=== PATIENT | female | born 1970 | race Caucasian/White ===

== ENCOUNTER → 2017-07-08 10:47 | Outpatient (CLI) | payer OTHER, SELFPAY ==
--- NOTE | 2017-07-08 10:49 | RAD_ITS ---
STUDY: X-RAY - LEFT KNEE REASON FOR EXAM: Chronic pain. TECHNIQUE: 4 view(s) of the knee. COMPARISON: None. FINDINGS: Normal visualized distal femur. Normal visualized proximal tibia and fibula. Normal proximal tibiofibular articulation. Normal medial femorotibial compartment. Normal lateral femorotibial compartment. Normal patellofemoral articulation. The soft tissue structures are unremarkable. RAD/Knee 4 or More Views IMPRESSION: Normal x-ray examination of the left knee. Electronically Signed: Brandon Wilson MD at 15:39 EDT Tel , Service support ,
== END ==
PROVIDERS: Family Provider Physician Assistant; PCP Physician Assistant; Visit Provider Orthopaedic Surgery
DX: M25.562 Pain in left knee (principal)
CPT/HCPCS: 73564

== ENCOUNTER → 2017-08-04 14:22 | Outpatient (CLI) | payer OTHER, SELFPAY ==
[2017-08-04 16:47] LABS: Amphetamine Urine VISTA NEGATIVE (<1000 ng/mL); Barbiturate Urine VISTA NEGATIVE (< 200 ng/mL); Benzodiazepine Urine VISTA NEGATIVE (< 200 ng/mL); Cocaine Urine VISTA NEGATIVE (< 300 ng/mL); Ecstacy Urine VISTA NEGATIVE (< 500 ng/mL); Methadone Urine VISTA NEGATIVE (< 300 ng/mL); PCP Urine VISTA NEGATIVE (< 25 ng/mL); THC Urine VISTA POSITIVE (< 50 ng/mL); Vista UDS pH Range 6
== END ==
PROVIDERS: Visit Provider Anesthesiology Pain Medicine
DX: F11.20 Opioid dependence, uncomplicated (principal)
CPT/HCPCS: 80307

== ENCOUNTER 2017-09-21 08:30 | Outpatient (RCR) | payer OTHER, SELFPAY ==
--- NOTE | 2017-07-13 10:22 | HP.PTEVAL_ITS ---
Patient's Visit Information FORREST NORIEGA is a 46 year old F referred to Physical Therapy by Jc JONES with a diagnosis of Back and Leg Pain. Date of Evaluation: 07/13/17 Physical Therapist: Yana Chadwick - Visit Plan Frequency: 2x /Week Duration: 4 Weeks Plan: Aquatics- focus on le and core s/s - Subjective Subjective: Patient reports that she has had back pain since Dec of last year- insidious onset with bulging disc and degeneration. Therapy did not help last time and want her to try pool therapy this time. Worst: 12/03 Agg: movement, sleep Eases: heat Best: 08/03 Pain is located along the center of the spine at the belt line and radiates both sides left>right. Goes down into both thighs. Describes pain as sharp and constant ache. Left leg has N/T from the knee to the ankle. Left knee has been bothering her for a few weeks. When her back hurts she limps and thinks thats what has it aggrevated. Had a cortisone shot last week which helped alittle but she thinks its already wearing off. Sharp pains through the knee cap when she bends it then when she straightens it out the pain decreases. Has had x-rays on her neck. Has had an MRI and x-rays on the back. Has had 4 injections in her back which help for a few days and dulls out the pain while she gets her house work in. Work: not currently working- since Nov of last year and resigned from [employer] in May- lifting heavy objects- no light duty. PMHx: 3 right groin hernia, bladder sling, abdonimal ablasion, full hysterectomy, ulnar nerve transplant, migraines, asthma. Meds: Cymbalta, Tazanadine, inhaler proair, comuvent, ibuprofen. Sleep : disturbed- side sleeper. Has problems with her bladder but is contient. - Objective Posture: FH, RS, Increased kyphosis- very guarded- increased lordosis of the lumbar spine. Gait: antalgic- decreased stance on the left LE- slow and very guarded posture. HR/TR: able with UE A. Balance: WS but unable to SLS without UE A. Palpation: tender to paraspinals and spinous process along L2-sacrum. ROM: lumbar: flexion- decreased by 25% extn: decreased by 50%, SB: decreased by 50% rot: decreased by 75%- all increase pain. Sensation: grossly intact to light touch. Strength: Left: Ankle: 4/5 Knee: 4/5, Hip: 4-/5 Core:poor Right: Ankle: 4+/5, knee: 4+/5, Hip: 4/5- all testing performed increased pain in the lumbar spine. Flex: hs: severe, gastroc: severe. Special Test: Slump test: positive - Goals Goal 1:: Patient will be I with HEP and progression Goal Time Frame: 4-6 Weeks Goal 2:: Patient will maintain proper posture t/o tx session to demo increased core s/s Goal Time Frame: 4-6 Weeks Goal 3:: Patient will report 4/10 pain for 1 week Goal Time Frame: 4-6 Weeks Goal 4:: Patient will demo 4+/5 strength in Le where deficit Goal Time Frame: 4-6 Weeks - Rehabilitation Potential Physical Therapy Diagnosis: Mago presents with hypmobility- she has decreased strength and muscular endurance leading to poor posture and increased pain with ADL's. Rehabilitation Potential: Fair - Anticipated Interventions Patient/Client Instruction: Educate patient on: Benefits of Fitness Program For the Purpose of:: To improve ability to perform ADL's Therapeutic Exercise to Include: Strength training, Endurance training, Balance training, Agility training, Body mechanics, Postural training, Flexibilty training, Gait and locomotor training, In an aquatic setting, Dynamic Lumbar Stabilization For the Purpose of:: To improve muscle performance and motor function Thank you for the opportunity to evaluate your patient. For Medicare and Medicare HMO plans, please review the plan of care and approve it. It will need to be FAXED BACK to us at [phone] for Medicare purposes. Please let me know if there are questions or concerns regarding this plan of care. Physician Signature: Date:
--- NOTE | 2017-08-12 15:19 | HP.PTREVAL_ITS ---
Jc Davila, It has been my pleasure to treat FORREST NORIEGA over the last 6 visits for Back and Leg Pain. Please see the progress note below for an update on the physical therapy plan of care! Subjective: Saw Dr. Davila who changed meds which are taking the edge off- its now somewhat bearable. Worst: 12/03 Best: 08/03. Patient felt that the pool therapy didn't have an adequate try due to things coming up due to inconsistency. Would like to try to have a more consistent schedule for her. Can only sit for about 15 minutes then her legs start to go numb. Objective/Function: Posture: FH, RS, Increased kyphosis- very guarded- increased lordosis of the lumbar spine. Gait: antalgic- decreased stance on the left LE- slow and very guarded posture. HR/TR: able with UE A. Balance: WS but unable to SLS without UE A. Palpation: tender to paraspinals and spinous process along L2-sacrum. ROM: lumbar: flexion- decreased by 25% extn: decreased by 50%, SB: decreased by 50% rot: decreased by 75%- all increase pain. Sensation: grossly intact to light touch. Strength: Left: Ankle: 4/5 Knee: 4/5, Hip: 4-/5 Core:poor Right: Ankle: 4+/5, knee: 4+/5, Hip: 4/5- all testing performed increased pain in the lumbar spine. Flex: hs: severe, gastroc : severe. Special Test: Slump test: positive Plan Plan: No change since initial IE- attempt to contiue aquatic therapy consistently. Goals Goal 1:: Patient will be I with HEP and progression Goal Time Frame: 4-6 Weeks Goal Progress: Progressing Goal 2:: Patient will maintain proper posture t/o tx session to demo increased core s/s Goal Time Frame: 4-6 Weeks Goal Progress: Progressing Goal 3:: Patient will report 4/10 pain for 1 week Goal Time Frame: 4-6 Weeks Goal Progress: Progressing Goal 4:: Patient will demo 4+/5 strength in Le where deficit Goal Time Frame: 4-6 Weeks Goal Progress: Not Progressing Anticipated Interventions Patient/Client Instruction: Educate patient on: Benefits of Fitness Program For the Purpose of:: To improve ability to perform ADL's Therapeutic Exercise to Include: Strength training, Endurance training, Balance training, Agility training, Body mechanics, Postural training, Flexibilty training, Gait and locomotor training, In an aquatic setting, Dynamic Lumbar Stabilization For the Purpose of:: To improve muscle performance and motor function Please do not hesitate to contact me at [phone] by phone or Fax: if you have questions or concerns regarding this new plan of care! Sincerely, Yana Chadwick
--- NOTE | 2017-09-21 08:50 | HP.PTDCSUM_ITS ---
HP - PT D/C Summary It has been my pleasure to treat FORREST NORIEGA under orders from Jc Davila , for the diagnosis of Back and Leg Pain for a total of 13 visit(s). Discharge Date: Please see the following information for a summary of their discharge status. - Subjective Subjective: Patient reports that she feels good when she is in the water but hurts when she is on land- gets about a couple of hours of relief. Has injections this by Dr. Davila in her back. Feels that she wants to hold off on therapy and have the injections and talk to her MDs. Across the hips and knee 10/03. Couldn't wear tennis shoes today secondary to not being able to get them on. - Pain Lumbar Spine Pain Intensity (Out of 10): 4 LLE Pain Intensity (Out of 10): 6 RLE Pain Intensity (Out of 10): 4 - Overall Improvement % Improvement: 70 - Objective Objective/Function: Posture: FH, RS, Increased kyphosis- very guarded- increased lordosis of the lumbar spine. Gait: antalgic- decreased stance on the left LE- slow and very guarded posture. HR/TR: able with UE A. Balance: WS but unable to SLS without UE A. Palpation: tender to paraspinals and spinous process along L2-sacrum. ROM: lumbar: flexion- decreased by 25% extn: decreased by 50%, SB: decreased by 50% rot: decreased by 75%- all increase pain. Sensation: grossly intact to light touch. Strength: Left: Ankle: 4/5 Knee: 4/5, Hip: 4-/5 Core:poor Right: Ankle: 4+/5, knee: 4+/5, Hip: 4/5- all testing performed increased pain in the lumbar spine. Flex: hs: severe, gastroc : severe. Special Test: Slump test: positive - Goals Goal 1:: Patient will be I with HEP and progression Goal Progress: Goal Met Goal 2:: Patient will maintain proper posture t/o tx session to demo increased core s/s Goal Progress: Progressing Goal 3:: Patient will report 4/10 pain for 1 week Goal Progress: Progressing Goal 4:: Patient will demo 4+/5 strength in Le where deficit Goal Progress: Not Progressing - Plan Plan: Patient is not making progress with PT and is still in significant pain- d /c return to MD for further evaluation. - D/C Information If there are questions or concerns regarding this patient's physical therapy, please feel free to call me at [phone]. Thank you for the referral of this patient. Sincerely, Yana Chadwick
== END 2017-09-21 14:33 | disposition home or self-care (01) ==
LOC: PT 08:30
PROVIDERS: Family Provider Physician Assistant; PCP Physician Assistant; Visit Provider Anesthesiology Pain Medicine
DX: M54.9 Dorsalgia, unspecified (principal); M79.606 Pain in leg, unspecified
CPT/HCPCS: 97113; 97162; 97530

== ENCOUNTER → 2017-10-22 10:24 | Outpatient (CLI) | payer OTHER, SELFPAY ==
[2017-10-22 12:16] LABS: Absolute Lymphocyte Count 1.88 X10^3/ul (0.83-4.51); Absolute Neutrophil Count 3.1 X10^3/uL (2.0-7.7); Basophil# 0.01 X10^3/uL; Basophil% 0.2 % (0-1); Eosinophil# 0.06 X10^3/uL; Eosinophils% 1.1 % (0-5); Hematocrit 47.6 % (37-47); Hemoglobin 16.2 g/dl (12.0-15.0); Lymphocyte # 1.88 X10^3/ul (4.0); Lymphocyte % 34.4 % (19-41); Mean Corpuscular Hgb 30.6 pg (27.0-32.0); Mean Corpuscular Volume 89.8 fL (81-99); Mean Platelet Vol. 11.1 fl (6.2-12.0); Monocyte# 0.42 X10^3/uL; Monocyte% 7.7 % (0-10); Neutrophil # 3.09 X10^3/uL (2.7-7.7); Neutrophil % 56.6 % (47-70); Platelet Count 229 K/mm3 (150-450); RBC Distribution Width CV 12.3 % (11.6-14.6); RBC Distribution Width SD 40.5 fl (35.1-43.9); White Blood Count 5.5 K/mm3 (4.4-11.0)
[2017-10-22 12:20] LABS: POSITIVE COUNT NO; POSITIVE DIFFERENTIAL NO; POSITIVE MORPHOLOGY NO
[2017-10-22 12:31] LABS: Hemoglobin A1c 5.7 % (4.2-6.3)
[2017-10-22 12:48] LABS: ALB/GLOB Ratio 0.9 RATIO (0.9-2.4); AST(SGOT) 19 U/L (15-37); Alanine Aminotransfer ALT/SGPT 38 U/L (13-56); Albumin, Serum 3.7 g/dL (3.2-5.0); Alkaline Phosphatase 96 U/L (45-117); Anion Gap 9 (5-15); BUN 9 mg/dL (7-18); BUN/Creat Ratio 13.5 RATIO (10-20); Calcium,Total 8.7 mg/dL (8.5-10.1); Chloride 106 mmol/L (98-107); Cholesterol 177 mg/dL (200); Creatinine, Serum 0.67 mg/dL (0.55-1.02); EST Glomerular Filtration Rate 101 mL/min (>60); Est Glom Filt Rate - Afr Amer 123 mL/min (>60); Glucose 96 mg/dL (74-106); High Density Lipoprotein 36 mg/dL; Potassium 4.4 mmol/L (3.5-5.1); Protein, Total 7.7 g/dL (6.4-8.2); Sodium Level 140 mmol/L (136-145); Thyroid Stim Hormone (TSH) 1.23 uIU/mL (0.358-3.74); Triglycerides 122 mg/dL; Very Low Density Lipoprotein 24 mg/dL (5-40)
== END ==
PROVIDERS: Visit Provider Family Medicine
DX: I10 Essential (primary) hypertension (principal); Z86.32 Personal history of gestational diabetes; J44.9 Chronic obstructive pulmonary disease, unspecified
CPT/HCPCS: 36415; 80053; 80061; 83036; 84443; 85025

== ENCOUNTER 2017-11-03 07:51 | Outpatient (RCR) | payer OTHER, SELFPAY ==
--- NOTE | 2017-11-03 13:40 | HP.OTFCE_ITS ---
HP OT Functional Capacity Eval - Task Lift Floor (Occasional 1-33% of Day): 20# Floor (Frequent 34-66% of Day): 10# Floor (Constant 67-100% of Day): NA Floor PDL: Light Knee (Occasional 1-33% of Day): 20# Knee (Frequent 34-66% of Day): 10# Knee (Constant 67-100% of Day): NA Knee PDL: Light Waist (Occasional 1-33% of Day): 20# Waist (Frequent 34-66% of Day): 10# Waist (Constant 67-100% of Day): NA Waist PDL: Light Shoulder (Occasional 1-33% of Day): 20# Shoulder (Frequent 34-66% of Day): 10# Shoulder (Constant 67-100% of Day): NA Shoulder PDL: Light Overhead (Occasional 1-33% of Day): 20# Overhead (Frequent 34-66% of Day): 10# Overhead (Constant 67-100% of Day): NA Overhead PDL: Light - Work Activity/Posture Bending: Occasional Ability (1-33% of day) Comments: LOW Squatting: Occasional Ability (1-33% of day) Comments: LOW Kneeling: No Ablility (0% of day) Reaching out: Occasional Ability (1-33% of day) Comments: Pain limits pt Reaching up: Occasional Ability (1-33% of day) Comments: Pain limits pt Sitting: Frequent Ability (34-66% of day) Walking: Occasional Ability (1-33% of day) Comments: LOW Standing: Occasional Ability (1-33% of day) Comments: LOW - Reference Duration Sedentary Sedentary Light Light Light Medium Medium Medium Heavy Very Heavy Heavy Occasional (0-33% of day) Frequent (34-66% of day) Constant (67-100% of day) 10 # Negligible Negligible 15 # 8 # Negligible 20 # 10# Negli. 35 # 18 # 7 # 50 # 25 # 10 # 75 # 100 # >100 # 38 # 50 # >50 # 15 # 20 # >20 # - Patient Information Height: 1.7 m Weight:: 122.47 kg Hand Dominance: Right - Medical History Medical History Including Restrictions: Pt states she has a groin hernia that was repaired in 2000, 2003 and 2004. pt states she has a pinched nerve in L4 and L5 dx in 2006- pt states she went through Physical Therapy but treatment was not helpful- Pt states in 2016 pt states she has been through Physical Therapy 3 sets of 12 visits, has seen Dr. Coburn in 2017, who application security specialist and he does not elana to do sx at this time. Pt states she sees Dr. Davila for Pain Mtg for spine injections (4 injections) . Pt states she does get minimal relief of her back pain for about a week. Pt states she did get a new family dr. Monteiro and she requested the FCE. pt states she was a smoker for 35 years and just started patch Wednesday to quit smoking. No lifting restrictions. Pt states she does not exercise on a regular basis. - Diagnoses Diagnoses: Asthma dx 1997 controlled with medication. Bronchitis dx 1997 controlled with medication. Migranins dx in 1997 controlled with Medication. HTN. Degenerative joint disease, Lumbar. Anxiety - Symptoms Symptoms: Low back pain. Bilateral Hip pain. BLE pins/tingling. Decreased sleep pattern - Pain Pain: Pt states her current pain level is 5/10. Pt states this is without pain medication. - Work History Work History: Pt states she worked at [employer] from [id number]. pt states she as not worked since 2016. 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 pt states she does not know what her lift requirerment was for her job but she was lifting, 50-90lbs. pt states she was standing and the lifting and twisting with her job duties. She did not return to work due her work requirements. 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 Pt states she left this job to take care of her mother. - Behavioral Behavioral: pt was cooroperative during her assessment. - ADLS ADLS: Pt states she lives with her in a one mobile home with two entry steps with one hand rail. Pt states she has a walk in shower. pt states she is mostly IND. with bathing/dressing - states her will shave her legs. Pt states she is IND. with dressing, cooking and cleaning. Pt states she does have to take a break during her cleaning, cooking tasks. Pt states she drives IND. Pt states she does go to the store IND. Reports her assist her in bringing shopping bags in their home. - Physical Examination ROM: Pt demo functional ROM grossly throughout- pt reported pain thouroughout ROM movement Strength: Right hip flexor 4-/5 all other MMT for UB/LB 4+/5 Right Framing Mill Operator Helper Strength Average: 45.00 Right Framing Mill Operator Helper Strength Percentile: 6% Left Framing Mill Operator Helper Strength Average: 56.66 Left Framing Mill Operator Helper Strength Percentile: 28% Right Lateral Pinch Average: 9.33 Right Lateral Pinch Percentile: 10% Left Lateral Pinch Average: 8.00 Left Lateral Pinch Percentile: <10% Right Tripod Pinch Average: 9.33 Right Tripod Pinch Percentile: 10% Left Tripod Pinch Average: 8.66 Left Tripod Pinch Percentile: >25% Sensation: Denies sensation changes to hands. States LE will get pins/tingle sensation after sitting so long. Fine Motor: Denies issues Balance: No loss of balance noted. - Non Material Handling Activities Bending: Pt demo the ability to bend forward three times and ten times with external support. Pt was unable to perform task ten times rapidly. Pt reported 6 /10 pain. Pt can bend forward on a low occasional basis. Squatting: pt demo the ability to squat three times and 9 times with exteranl support-pt was unable to complete ten times rapidly . pt reported pain 6/10 following task. Pt can squat on a low occasional basis. Kneeling: Pt demo no ability to kneel. Reaching out/up: PT demo the ability to reach up/out three times, ten times and ten times rapidly. Pt reported pain 5/10 with this task. pt can perfrom on a occasional basis Walking: Pt demo the ability to ambulate for 8 min 23 sec. Pt reported her legs flet Like Jelly-pt ambulated with a antalgic gait pattern. Pt reported back pain 6/10 Pt can ambulate on a low occasional basis. Standing: Pt reports she stands for about 10 min for her shower and demo the ability to stand for 4 min with shifting her body weight. Pt reported low back pain 7/10. Pt can stand on a low occasional ability Sitting: pt demo the ability to sit for 45 min with demo facial discomfort and shifting her wt. pt can sit on frequent basis with shifting body wt. Climbing Stairs: Pt demo the ability to ascend and descend ten steps with a reciprical step pattern and use of both handrails. - Dynamic Occasional Lifting Capacity Floor Lift: pt demo the ability to lift 20# maximally from this level. Knee Lift: pt demo the ability to lift 20# maximally from this level. Waist Lift: pt demo the ability to lift 20# maximally from this level. Shoulder Lift: pt demo the ability to lift 20# maximally from this level. Overhead Lift: pt demo the ability to lift 20# maximally from this level. Carrying: pt demo the ability to carry 20# for 40 feet with antalgic gait pattern. Comments: During all lifting protions of the assessment pt did hold her breath and grimace during tasks. Pt reported 7/10 back pain following lifting tasks.
== END 2017-11-03 19:00 | disposition home or self-care (01) ==
LOC: OT 07:51
PROVIDERS: Family Provider Physician Assistant; PCP Physician Assistant; Visit Provider Family Medicine
DX: M47.816 Spondylosis without myelopathy or radiculopathy, lumbar region (principal); J44.9 Chronic obstructive pulmonary disease, unspecified
CPT/HCPCS: 97750

== ENCOUNTER 2018-02-02 13:52 | Emergency (ER) | payer OTHER, SELFPAY ==
[2018-02-02 13:53] VITALS: BP 112/92; PULSE 72; RESP 14; TEMP 31.7; O2SAT 98; BMI 42.3
--- NOTE | 2018-02-02 14:05 | EKG12_ITS ---
Test Reason : LUNG PAIN Blood Pressure : / mmHG Vent. Rate : 084 BPM Atrial Rate : 084 BPM P-R Int : 142 ms QRS Dur : 080 ms QT Int : 380 ms P-R-T Axes : 068 030 073 degrees QTc Int : 449 ms Normal sinus rhythm Normal ECG Confirmed by JAMAL CANALES, PAOLA ([id number]), purchase request editor RL VASQUEZ ([id number]) on 02/07/2018 4:00:34 PM Referred By: TANNA Confirmed By:PAOLA BERRY MD
--- NOTE | 2018-02-02 15:19 | RAD_ITS ---
STUDY: X-RAY CHEST REASON FOR EXAM: Female, 47 years old. Short of breath TECHNIQUE: PA and lateral views of the chest. COMPARISON: December 13, 2014 FINDINGS: The lungs are clear and expanded. There is no demonstrated pleural abnormality. Normal size heart. Normal mediastinum and elizabeth. Normal visualized pulmonary arteries. Normal visualized aortic arch and descending thoracic aorta. Normal visualized thoracic spine. Normal visualized ribs, clavicles, and shoulders. There is no demonstrated abnormality of the visualized soft tissue structures of the upper abdomen. RAD/Chest PA and Lateral IMPRESSION: Normal x-ray examination of the chest. Electronically Signed: Caitie Jordan MD at 15:45 EDT , Service support ,
--- NOTE | 2018-02-02 15:20 | ED.VISSUMM ---
- ER Visit Summary Date of Service: 02/02/18 Chief Complaint: Right-sided chest pain History of Present Illness: The patient is a 47 F who presents for 4 hours of right-sided chest pain. Patient states she was lifting a small box in her closet and turned, feeling a pop in her right chest with subsequent pain. Since then patient is having pleuritic chest pain. Pain is also worse with movement. No overt shortness of breath. Patient has chronic cough secondary to COPD but no worsening of cough. No nausea or vomiting. No other complaints other than the right sided chest pain. It is in the posterior axillary line and posterior right lower ribs. She has history of COPD, chronic back problems. No history of coronary artery disease. Physical Examination: Vital signs: afebrile, hemodynamically stable, no hypoxia on room air General: well nourished, well developed, in no distress, appears uncomfortable Skin: warm, dry, erythematous papular rash with coalescence and 2 ovoid plaques noted on the chest, chronic, no pallor HEENT: normocephalic and atraumatic; PERRL, EOMI, moist mucous membranes Cardiovascular: regular rate and rhythm without murmurs, no peripheral edema, 2+ pulses all distal extremities Respiratory: Patient taking rapid shallow breaths, lungs are clear to auscultation bilaterally, diffuse expiratory wheezing, chest wall tenderness over the right posterior mid ribs around to the posterior axillary line Abdominal: Abdomen is soft, nontender with normoactive bowel sounds, no guarding or rebound, no masses MSK: Moves all extremities, no deformities, normal strength Neuro: Awake and alert, oriented ?4. No facial droop, sensation and motor function intact and symmetric Test Results: Clinical Impression(s) from Imaging Studies Chest X-Ray 02/02/18 15:19 IMPRESSION: Normal x-ray examination of the chest. Electronically Signed: Caitie Jordan MD at 15:45 EDT , Service support , Emergency Department Course and Treatment: Patient was given a DuoNeb secondary to her wheezing, most likely secondary to her baseline COPD. Patient had symmetric lung sounds with no diminished sounds on the right. No unilateral rash on the chest wall that would be concerning for shingles. Given naproxen for pain. Chest x-ray was performed to evaluate for any possible spontaneous pneumothorax; it showed no pneumothorax, obvious rib fractures, pneumonia or other acute process. Patient was feeling better after her breathing treatment. She still had the pleuritic chest pain that was worse with movement. We discussed that she most likely strained a chest wall muscle or may have even irritated the cartilage between her ribs when she moved and felt the pop. She was given an incentive spirometer and will use her home naproxen for pain. She was also given a prescription for Flexeril to use for any muscle related pain. Patient discharged home. Treatment Plan: [] Disposition: [] Impression: Right sided chest wall strain This note was generated with Whisk dictation software. It may contain incorrect words, spelling, and punctuation that were not noted in review of the chart prior to signing ED Disposition - Plan for ED Patient: Disposition: Home or Assisted Living Chief Complaint: Chest Other Instructions: ED Strain Chest Wall Prescriptions: Cyclobenzaprine [Flexeril] 5 mg PO TID PRN PRN #20 tab PRN Reason: Muscle Spasm Referrals: Prasanna Perez PA [PHYSICIAN METER REPAIRER] - 3-5 Days if not improving Additional Instructions: Use your naproxen at home to help with chest wall pain, and use the Flexeril as needed to help with muscle spasm in the chest wall. Continue taking your breathing treatments as prescribed to make sure that you are breathing well. Use the incentive spirometer 10 times an hour while awake until you feel better. If you have any worsening of your condition or any new concerning symptoms, please return immediately to the emergency department for another evaluation.
--- NOTE | 2018-02-02 15:24 | ED.DCSUM_ITS ---
- ER Visit Summary Date of Service: 02/02/18 Chief Complaint: Right-sided chest pain History of Present Illness: The patient is a 47 F who presents for 4 hours of right-sided chest pain. Patient states she was lifting a small box in her closet and turned, feeling a pop in her right chest with subsequent pain. Since then patient is having pleuritic chest pain. Pain is also worse with movement. No overt shortness of breath. Patient has chronic cough secondary to COPD but no worsening of cough. No nausea or vomiting. No other complaints other than the right sided chest pain. It is in the posterior axillary line and posterior right lower ribs. She has history of COPD, chronic back problems. No history of coronary artery disease. Physical Examination: Vital signs: afebrile, hemodynamically stable, no hypoxia on room air General: well nourished, well developed, in no distress, appears uncomfortable Skin: warm, dry, erythematous papular rash with coalescence and 2 ovoid plaques noted on the chest, chronic, no pallor HEENT: normocephalic and atraumatic; PERRL, EOMI, moist mucous membranes Cardiovascular: regular rate and rhythm without murmurs, no peripheral edema, 2+ pulses all distal extremities Respiratory: Patient taking rapid shallow breaths, lungs are clear to auscultation bilaterally, diffuse expiratory wheezing, chest wall tenderness over the right posterior mid ribs around to the posterior axillary line Abdominal: Abdomen is soft, nontender with normoactive bowel sounds, no guarding or rebound, no masses MSK: Moves all extremities, no deformities, normal strength Neuro: Awake and alert, oriented ?4. No facial droop, sensation and motor function intact and symmetric Test Results: Clinical Impression(s) from Imaging Studies Chest X-Ray 02/02/18 15:19 IMPRESSION: Normal x-ray examination of the chest. Electronically Signed: Caitie Jordan MD at 15:45 EDT , Service support , Emergency Department Course and Treatment: Patient was given a DuoNeb secondary to her wheezing, most likely secondary to her baseline COPD. Patient had symmetric lung sounds with no diminished sounds on the right. No unilateral rash on the chest wall that would be concerning for shingles. Given naproxen for pain. Chest x-ray was performed to evaluate for any possible spontaneous pneumothorax; it showed no pneumothorax, obvious rib fractures, pneumonia or other acute process. Patient was feeling better after her breathing treatment. She still had the pleuritic chest pain that was worse with movement. We discussed that she most likely strained a chest wall muscle or may have even irritated the cartilage between her ribs when she moved and felt the pop. She was given an incentive spirometer and will use her home naproxen for pain. She was also given a prescription for Flexeril to use for any muscle related pain. Patient discharged home. Treatment Plan: [] Disposition: [] Impression: Right sided chest wall strain This note was generated with [employer] dictation software. It may contain incorrect words, spelling, and punctuation that were not noted in review of the chart prior to signing ED Disposition - Plan for ED Patient: Disposition: Home or Assisted Living Chief Complaint: Chest Other Instructions: ED Strain Chest Wall Prescriptions: Cyclobenzaprine [Flexeril] 5 mg PO TID PRN PRN #20 tab PRN Reason: Muscle Spasm Referrals: Prasanna Perez PA [PHYSICIAN [employer]] - 3-5 Days if not improving Additional Instructions: Use your naproxen at home to help with chest wall pain, and use the Flexeril as needed to help with muscle spasm in the chest wall. Continue taking your breath ing treatments as prescribed to make sure that you are breathing well. Use the incentive spirometer 10 times an hour while awake until you feel better. If you have any worsening of your condition or any new concerning symptoms, please return immediately to the emergency department for another evaluation.
[2018-02-02] MEDS: Naproxen 500 MG Tablet PO (15:45)
[2018-02-02 15:50] VITALS: PULSE 86; RESP 22
[2018-02-02] MEDS: Ipratropium/Albuterol Sulfate 3 ML AMPUL.NEB INHALATION (15:50)
--- NOTE | 2018-02-02 15:58 | ED.DEP ---
ED Disposition - Plan for ED Patient: Disposition: Home or Assisted Living Chief Complaint: Chest Other Instructions: ED Strain Chest Wall Prescriptions: Cyclobenzaprine [Flexeril] 5 mg PO TID PRN PRN #20 tab PRN Reason: Muscle Spasm Referrals: Prasanna Perez PA [PHYSICIAN [employer] MATE] - 3-5 Days if not improving Additional Instructions: Use your naproxen at home to help with chest wall pain, and use the Flexeril as needed to help with muscle spasm in the chest wall. Continue taking your breathing treatments as prescribed to make sure that you are breathing well. Use the incentive spirometer 10 times an hour while awake until you feel better. If you have any worsening of your condition or any new concerning symptoms, please return immediately to the emergency department for another evaluation.
[2018-02-02 16:19] VITALS: PULSE 87; RESP 14; O2SAT 98
== END 2018-02-02 16:19 | disposition home or self-care (01) ==
PROVIDERS: Emergency Provider Emergency Medicine; Family Provider Family Medicine; PCP Family Medicine
DX: S29.011A Strain of muscle and tendon of front wall of thorax, initial encounter (principal); J45.909 Unspecified asthma, uncomplicated; J44.9 Chronic obstructive pulmonary disease, unspecified; Z72.0 Tobacco use; Z79.51 Long term (current) use of inhaled steroids; Z79.891 Long term (current) use of opiate analgesic; Z79.899 Other long term (current) drug therapy; X50.0XXA Overexertion from strenuous movement or load, initial encounter; Y93.89 Activity, other specified; Y92.008 Other place in unspecified non-institutional (private) residence as the place of occurrence of the external cause; Y99.8 Other external cause status
CPT/HCPCS: 71046; 93005; 94640; 99283

== ENCOUNTER → 2018-02-10 13:26 | Outpatient (CLI) | payer OTHER, SELFPAY ==
--- NOTE | 2018-02-10 13:37 | MRI_ITS ---
STUDY: MRI LUMBAR SPINE WITHOUT CONTRAST REASON FOR EXAM: Female, 47 years old. Sharp low back pain radiates into legs x2 yrs. TECHNIQUE: Standardized fat and water weighted pulse sequences were obtained in the sagittal and axial planes. # of Images: 121 COMPARISON: None FINDINGS: T12-L1: Normal endplates. Normal disc height, hydration and morphology. Normal bilateral facet joints. Normal central canal and bilateral lateral recesses. Normal bilateral intervertebral neural foramina. Normal lumbar lordosis. There is no substantial scoliosis. Normal conus medullaris that terminates at the L1 level. L1-2: Normal endplates. Normal disc height, hydration and morphology. Normal bilateral facet joints. Normal central canal and bilateral lateral recesses. Normal bilateral intervertebral neural foramina. L2-3: Normal endplates. Normal disc height, hydration and morphology. Normal bilateral facet joints. Normal central canal and bilateral lateral recesses. Normal bilateral intervertebral neural foramina. L3-4: Normal endplates. Normal disc height, hydration and morphology. Normal bilateral facet joints. Normal central canal and bilateral lateral recesses. Normal bilateral intervertebral neural foramina. L4-5: Small midline disc herniation. Mild degenerative changes in the facet joints. Normal central canal and bilateral lateral recesses. Normal bilateral intervertebral neural foramina. L5-S1: Endplate spondylosis. Moderate size broad-based midline and para midline disc herniation more prominent on the right side impinging on the right and left S1 nerve roots. Decreased disc height and small circumferential disc bulge. Degenerative changes of the bilateral facet joints. Mild narrowing of the central canal and bilateral intervertebral neural foramina. Normal visualized sacral ala. Normal visualized paraspinous soft tissue structures. MRI/Spine Lumbar (Routine) IMPRESSION: L4-5 and L5-S1 degenerative changes, as described above. Moderate size broad-based midline and para midline disc herniation at L5-S1 is more prominent on the right side impinging on the right and left S1 nerve roots. Electronically Signed: Saravanan De La Cruz MD at 10:08 EDT Tel , Service support ,
== END ==
PROVIDERS: Family Provider Family Medicine; PCP Family Medicine; Referring Provider Anesthesiology Pain Medicine; Visit Provider Anesthesiology Pain Medicine
DX: M54.9 Dorsalgia, unspecified (principal); M79.606 Pain in leg, unspecified
CPT/HCPCS: 72148

== ENCOUNTER → 2018-05-03 08:32 | Outpatient (CLI) | payer OTHER, SELFPAY ==
--- NOTE | 2018-05-03 08:38 | RAD_ITS ---
STUDY: X-RAY - LUMBOSACRAL SPINE REASON FOR EXAM: Female, 47 years old. Chronic low back pain. TECHNIQUE: 6 view(s) of the lumbosacral spine were obtained including lateral flexion and extension views.. COMPARISON: None FINDINGS: Normal lumbar lordosis. There is a minimal dextroscoliosis of the lumbar spine. There is normal alignment of the vertebrae. Mild anterior spondylosis at the L5-S1 level. Moderate degree of disc space narrowing at the L4-L5 and L5-S1 levels. Normal bilateral sacral ala, sacroiliac joints, and visualized sacrum. There is atherosclerotic calcification of the abdominal aorta without a demonstrated aneurysm. Large amount of fecal material is seen in the colon. RAD/L/S Spine Comp/w Bending Views IMPRESSION: Degenerative changes of the spine, as detailed above. Electronically Signed: Ramos Steen MD at 8:22 EST Tel [phone], Service support ,
== END ==
LOC: HPRAD 08:34
PROVIDERS: Family Provider Family Medicine; PCP Physician Assistant; Referring Provider Orthopaedic Surgery; Visit Provider Orthopaedic Surgery
DX: M54.5 Low back pain (principal)
CPT/HCPCS: 72114

== ENCOUNTER → 2018-05-30 09:22 | Outpatient (CLI) | payer OTHER, SELFPAY ==
[2018-05-30 09:10] VITALS: BMI 41.8
--- NOTE | 2018-05-30 09:24 | RAD_ITS ---
STUDY: X-RAY - RIGHT KNEE REASON FOR EXAM: Female, 47 years old. Quadrant pain. TECHNIQUE: 4 view(s) of the knee. COMPARISON: None. FINDINGS: Normal visualized distal femur. Normal visualized proximal tibia and fibula. Normal proximal tibiofibular articulation. Normal medial femorotibial compartment. Normal lateral femorotibial compartment. Normal patellofemoral articulation. The soft tissue structures are unremarkable. RAD/Knee 4 or More Views IMPRESSION: Normal x-ray examination of the knee. Electronically Signed: Ramos Steen MD at 14:31 EST , Service support ,
--- NOTE | 2018-05-30 09:24 | RAD_ITS ---
STUDY: X-RAY - LEFT KNEE REASON FOR EXAM: Female, 47 years old. Chronic pain. No known injury. TECHNIQUE: 4 view(s) of the knee. COMPARISON: Comparison is made with prior study dated July 08, 2017. FINDINGS: Normal visualized distal femur. Normal visualized proximal tibia and fibula. Normal proximal tibiofibular articulation. Normal medial femorotibial compartment. Normal lateral femorotibial compartment. Normal patellofemoral articulation. The soft tissue structures are unremarkable. RAD/Knee 4 or More Views IMPRESSION: Normal x-ray examination of the knee. Electronically Signed: Ramos Steen MD at 14:31 EST , Service support ,
== END ==
PROVIDERS: Family Provider Family Medicine; PCP Physician Assistant; Referring Provider Orthopaedic Surgery; Visit Provider Orthopaedic Surgery
DX: M25.561 Pain in right knee (principal); M25.562 Pain in left knee
CPT/HCPCS: 73564

== ENCOUNTER → 2018-08-11 | Outpatient (CLI) | payer OTHER, SELFPAY ==
[2018-05-30 09:10] VITALS: BMI 41.8
[2018-08-11 13:58] LABS: Amphetamine Urine VISTA NEGATIVE (<1000 ng/mL); Barbiturate Urine VISTA NEGATIVE (< 200 ng/mL); Benzodiazepine Urine VISTA NEGATIVE (< 200 ng/mL); Cocaine Urine VISTA NEGATIVE (< 300 ng/mL); Ecstacy Urine VISTA NEGATIVE (< 500 ng/mL); Methadone Urine VISTA NEGATIVE (< 300 ng/mL); PCP Urine VISTA NEGATIVE (< 25 ng/mL); THC Urine VISTA NEGATIVE (< 50 ng/mL); Vista UDS pH Range 6
== END | disposition home or self-care (01) ==
PROVIDERS: Family Provider Family Medicine; PCP Family Medicine; Referring Provider Anesthesiology Pain Medicine; Visit Provider Anesthesiology Pain Medicine
DX: F11.20 Opioid dependence, uncomplicated (principal)
CPT/HCPCS: 80307

== ENCOUNTER 2018-09-03 23:02 | Observation (INO) | payer OTHER, SELFPAY ==
[2018-05-30 09:10] VITALS: BMI 41.8
[2018-09-03 23:02] VITALS: BP 160/82; PULSE 114; RESP 20; TEMP 37.7; O2SAT 93; BMI 43.0
--- NOTE | 2018-09-03 23:21 | RAD_ITS ---
HISTORY: COUGH, SORE THROAT AND SOB. EXAM:XR Chest 1 View portable COMPARISON: 02/02/2018 FINDINGS: No significant change. Normal heart size. No vascular congestion, pleural effusion, or acute pulmonary infiltration. No pneumothorax. The bony thorax appears intact. RAD/Chest 1 View (Portable) IMPRESSION: No acute cardiopulmonary disease. No significant interval change. at [id number] Reported and signed by: Prasanna Ga MD Electronically Signed: Prasanna Ga, at 23:44 EDT Tel , Service support ,
--- NOTE | 2018-09-03 23:21 | EKG12_ITS ---
Test Reason : SOB Blood Pressure : / mmHG Vent. Rate : 105 BPM Atrial Rate : 105 BPM P-R Int : 128 ms QRS Dur : 078 ms QT Int : 332 ms P-R-T Axes : 063 014 068 degrees QTc Int : 438 ms Sinus tachycardia Otherwise normal ECG Confirmed by ARCHANA GREY ([id number]), society editor JAMES DAVE ([id number]) on 09/05/2018 1:47:44 PM Referred By: [place] Confirmed By:ARCHANA GREY
[2018-09-03] MEDS: MethylPREDNISolone 125 MG/2 ML Vial IV (23:40)
[2018-09-03 23:45] VITALS: O2SAT 96
[2018-09-03] MEDS: Ipratropium/Albuterol Sulfate 3 ML AMPUL.NEB INHALATION (23:45)
[2018-09-03] MEDS: Albuterol 2.5 MG/3 ML VIAL.NEB. INHALATION (23:45)
[2018-09-03 23:52] VITALS: PULSE 115; RESP 25
[2018-09-03 23:57] LABS: Absolute Lymphocyte Count 2.07 X10^3/ul (0.83-4.51); Absolute Neutrophil Count 10.2 X10^3/uL (2.0-7.7); Basophil# 0.01 X10^3/uL; Basophil% 0.1 % (0-1); Eosinophil# 0.03 X10^3/uL; Eosinophils% 0.2 % (0-5); Hematocrit 42.1 % (37-47); Hemoglobin 14.8 g/dl (12.0-15.0); Lymphocyte # 2.07 X10^3/ul (4.0); Lymphocyte % 15.7 % (19-41); Mean Corp Hgb Conc 35.2 g/gl (32-36); Mean Corpuscular Hgb 31.2 pg (27.0-32.0); Mean Corpuscular Volume 88.8 fL (81-99); Mean Platelet Vol. 10.4 fl (6.2-12.0); Monocyte# 0.77 X10^3/uL; Monocyte% 5.9 % (0-10); Neutrophil # 10.23 X10^3/uL (2.7-7.7); Neutrophil % 77.8 % (47-70); POSITIVE COUNT NO; POSITIVE DIFFERENTIAL NO; POSITIVE MORPHOLOGY NO; Platelet Count 222 K/mm3 (150-450); RBC Distribution Width CV 12.7 % (11.6-14.6); RBC Distribution Width SD 40.9 fl (35.1-43.9); Red Blood Count 4.74 M/mm3 (4.2-5.4); White Blood Count 13.2 K/mm3 (4.4-11.0)
[2018-09-04] VITALS (12 sets, daily range): BP systolic 124–159; BP diastolic 56–85; PULSE 80–121; RESP 16–28; TEMP 36.4–37; O2SAT 92–96; BMI 43.2
--- NOTE | 2018-09-04 00:07 | ED.DCSUM_ITS ---
- ER Visit Summary Date of Service: 09/04/18 Chief Complaint: Cough, shortness of breath History of Present Illness: The patient is a 48 F presents to the emergency department cough and shortness of breath. Patient states she has a history of COPD. The past week, she had worsening cough, shortness of breath, orthopnea, and continued wheezing. She states she is been using her nebulizers every 4 hours with little improvement. She states she had a difficult time sleeping because she is so dyspneic. She denies any chest pain. She does admit to some low-grade fevers. She states that she had a few bouts of posttussive emesis. The patient has no history of coronary vascular disease. She denies any history of pulmonary embolus. She does smoke. She denies any recent sick contacts. Physical Examination: Vital signs reviewed General: Well-nourished, well-developed Head: Normocephalic, atraumatic Eyes: Pupils equal and reactive, extraocular muscles intact Neck, supple, no lymphadenopathy Heart: Regular rate and rhythm Respiratory: No distress, wheezing in all lung samuels Abdomen: Soft, nontender, nondistended, no peritoneal signs Back: Nontender Extremities: Nontender, no edema, no cords Skin: Normal color no rash Neuro: Alert and oriented, no focal or lateralizing deficits Test Results: [] Emergency Department Course and Treatment: The patient's symptoms do seem most consistent with a COPD exacerbation. EKG was obtained. Sinus tachycardia. There is no acute ischemic change. Patient was given nebulized breathing treatments and steroids. She did have some improvement of aeration but still h ad tightness and resting tachypnea. Chest x-ray shows no focal infiltrate. Labs do demonstrate a mild leukocytosis, but otherwise unremarkable. Cardiac enzymes are normal. Despite treatment, patient still has persistent bronchospasm. She will be covered with IV antibiotics. Patient was discussed with the hospitalist and will be admitted for continued care. Treatment Plan: [] Disposition: Admission Impression: 1. COPD exacerbation with persistent bronchospasm This note was generated with [employer] dictation software. It may contain incorrect words, spelling, and punctuation that were not noted in review of the chart prior to signing ED Disposition - Plan for ED Patient: Referrals: Huey Hoff MD [Primary Care Provider] -
[2018-09-04 00:16] LABS: Anion Gap 6 (5-15); BUN 14 mg/dL (7-18); BUN/Creat Ratio 23.5 RATIO (10-20); Calcium,Total 8.4 mg/dL (8.5-10.1); Chloride 107 mmol/L (98-107); EST Glomerular Filtration Rate 115 mL/min (>60); Est Glom Filt Rate - Afr Amer 139 mL/min (>60); Estimated Creatinine Clearance 112.72 ml/min; Glucose 109 mg/dL (74-106); Potassium 3.7 mmol/L (3.5-5.1); Sodium Level 137 mmol/L (136-145)
[2018-09-04] MEDS: Albuterol 2.5 MG/3 ML VIAL.NEB. INHALATION ×2 (00:25)
[2018-09-04 00:34] LABS: Lactic Acid 1.2 mmol/L (0.4-2.0)
--- NOTE | 2018-09-04 00:49 | HP.PCM_ITS ---
Problem List (1) COPD exacerbation Status: Acute (2) COPD with asthma Status: Chronic (3) Morbid obesity Status: Chronic (4) Anxiety and depression Status: Chronic (5) Chronic back pain Status: Chronic Qualifiers: Back pain location: back pain in unspecified location Back pain laterality: unspecified Qualified Code(s): M54.9 - Dorsalgia, unspecified; G89.29 - Other chronic pain (6) Tobacco use Status: Chronic (7) Chronic acquired lymphedema Status: Chronic History of Present Illness Date of Admission: 09/04/18 Chief Complaint: Dyspnea, cough, wheezing. The patient is a 48 y/o F w/ PMHx: Tobacco use, Anxiety and Depression, Chronic BL LE Edema, Asthma/COPD, Chronic low back pain following w/ Dr. Davila, Morbid Obesity who presents to the [facility] ED on 09/04/18 with history of ~ 1 week URI sxs, now with 4 days of worsening dyspnea, cough, wheezing, unable to bring up her sputum, low grade temperatures. The patient has attempted to use her rescue inhalers heavily without marked improvement. In the ED work-up included T 99.9, heart rate initially 114, BP 160/82, respiratory rate 20, 93% on room air, CBC with WBC 13.2, globin 14.8, platelet 222 with left shift, BMP with glucose 109, lactic acid 1.2, troponin less than 0.015, EKG with no acute evidence of ischemia, chest x-ray with no acute cardia pulmonary findings, blood culture x2 pending per ED. Past Medical History Past Medical History (Chronic Problems): Chronic Problems (Last Reviewed 07/08/17 @ 10:38 by Jazmine Dean) COPD with asthma (Chronic) Morbid obesity (Chronic) Anxiety and depression (Chronic) Chronic back pain (Chronic) Tobacco use (Chronic) Chronic acquired lymphedema (Chronic) Medical History: Medical History (Last Reviewed 07/08/17 @ 10:38 by Jazmine Dean) Asthma J45.909 COPD (chronic obstructive pulmonary disease) J44.9 Chronic low back pain M54.5, G89.29 H/O: hysterectomy Z90.710 11/2015 Allergies cephalexin monohydrate [From Keflex] Allergy (Verified 09/03/18 23:05) Anaphylaxis clarithromycin [From Biaxin] Allergy (Verified 09/03/18 23:05) Anaphylaxis Penicillins Allergy (Verified 09/03/18 23:05) Anaphylaxis aspirin Adverse Reaction (Verified 09/03/18 23:05) Nausea Home Medications: Ambulatory Orders Medication Instructions Recorded Albuterol Aerosols [Ventolin 1 unit INHALATION Q4H PRN PRN 11/04/16 Aerosols] albuterol sulfate HFA 90 2 puff INHALATION Q6H 07/08/17 mcg/actuation aerosol inhaler tizanidine 4 mg capsule 4 mg PO QHS 07/08/17 Hydrocodone/Acetaminophen 1 ea PO TID 02/02/18 [Hydrocodon-Acetaminophen 5-325] Venlafaxine HCl 75 mg PO BID 02/02/18 Hydrochlorothiazide [Hctz] 25 mg PO DAILY 09/03/18 Hydroxyzine HCl 25 mg PO DAILY PRN 09/03/18 Surgical History: Surgical History (Last Updated 07/08/17 @ 10:39 by Jazmine Dean) H/O right inguinal hernia repair Z98.890, Z87.19 08/2001 S/P endometrial ablation Z98.890 S/P removal of left ovary Z90.721 04/2015 bladder sling Surgical History: - - Hysterectomy, bladder sling, right inguinal hernia repair, endometrial ablation, left oophorectomy. 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 Alcohol: None Drugs: None - *Family History Maternal Family History: Family History (Last Updated 07/08/17 @ 10:39 by Jazmine Dean) Mother Myocardial infarction Heart disease CVA (cerebral vascular accident) Hypertension Diabetes Sister Uterine cancer History Items: Diabetes, High Cholesterol, Heart Disease, Hypertension, Stroke Paternal Family History: Family History (Last Updated 07/08/17 @ 10:39 by Jazmine Dean) Mother Myocardial infarction Heart disease CVA (cerebral vascular accident) Hypertension Diabetes Sister Uterine cancer History Items: - - Patient does not know her paternal family history. Review of Systems Constitutional: Reports: Anorexia, Chills, Malaise, Weakness, Fatigue. Denies: Fever, Weight Change HEENT: Reports: Sinus Congestion, Sore Throat. Denies: Head Aches, Sinus Drainage Cardiovascular: Denies: Chest Pain, Palpitations Respiratory: Reports: Cough, Shortness of Breath, Shortness of breath at rest, Shortness of breath upon exertion, Sputum production, Wheezing Gastrointestinal: Denies: Abdominal Pain, Nausea, Vomiting Genitourinary: Denies: Dysuria Musculoskeletal: Reports: Back Pain, Joint Pain. Denies: Joint Tenderness Skin: Denies: Rash, Wounds Neurological: Denies: Numbness, Tingling, Focal weakness Psychiatric: Reports: Anxiety, Depression. Denies: Homicidal Ideations, Suicidal Ideations Hematologic/ Lymphatic: Denies: Easy Bruising, Easy Bleeding VTE Information - Inpt Only VTE Present on Admission: No VTE Mechan Device Prophylaxis: SCD's VTE Pharm Prophylaxis ordered?: Yes Patient Problems: Active and Suspected Problems (Last Reviewed 07/08/17 @ 10:38 by Jazmine romeo) COPD exacerbation (Acute) Subjective: Seated upright in ED bed, fatigued appearance, still ongoing increased work of breathing, some accessory muscle usage, ill-appearing Objective: Physical Examination: General: awake, alert, oriented x 3 and cooperative, seated upright in the ED bed, fatigued, ill-appearing, increased work of breathing, accessory muscle usage. Skin: normal color, turgor, no icterus, cyanosis. HEENT: AT/NC, EOMI, PERRLA, dry MM, no carotid bruits or JVD noted. Lungs: Severely diminished breath sounds throughout, greater bases, increased respiratory rate, accessory muscle usage, fatigued appearance, no current rales, rhonchi or wheezing. Heart: Tachycardic with regular rhythm; no gallop, rub audible. Abdomen: soft, orbitally obese, NTTP, ND, normal BS, no HSM; however, habitus makes examination difficult. Extremities: no cyanosis, clubbing, bilateral lower extremity ankle to distal beltre not markedly pitting edema, chronic. Neurological: patient awake, alert, oriented x 3; cognitive function intact; pupils equally reactive to light and accomodation; cranial nerves II-XII grossly normal, moving all 4 extremities, no focal deficits, strength severely global decrease secondary to acute presentation. Psychiatric: affect appears fatigued, no acute evidence of depressive or anxiety feelings. - Physical Exam Vital Signs Temp Pulse Resp BP Pulse Ox 98.3 F 112 H 26 H 133/78 H 96 09/04/18 00:00 09/04/18 00:00 09/04/18 00:00 09/04/18 00:00 09/04/18 00:00 Oxygen Delivery Method Room Air Weight: 275 lb Body Mass Index (BMI) 43.0 Finger Stick Blood Glucose 113 Laboratory Tests Past 24 Hrs 09/03/18 09/03/18 09/03/18 23:30 23:30 23:38 WBC 13.2 H RBC 4.74 Hgb 14.8 Hct 42.1 MCV 88.8 MCH 31.2 MCHC 35.2 RDW 12.7 RDW Differential 40.9 Plt Count 222 MPV 10.4 Immature Gran % (Auto) 0.300 Neut % (Auto) 77.8 H Lymph % (Auto) 15.7 L Spencer % (Auto) 5.9 Eos % (Auto) 0.2 Baso % (Auto) 0.1 Absolute Neuts (auto) 10.2 H Absolute Lymphs (auto) 2.07 Total Counted Not Reportable Sodium 137 Potassium 3.7 Chloride 107 Carbon Dioxide 24.0 Anion Gap 6 BUN 14 Creatinine 0.60 Estim Creat Clear Calc 112.72 Est GFR (MDRD) Af Amer 139 Est GFR (MDRD) Non-Af 115 BUN/Creatinine Ratio 23.5 H Glucose 109 H Lactic Acid 1.2 Calcium 8.4 L Troponin I < 0.015 Assessment/Plan All Active Problems (Last Reviewed 07/08/17 @ 10:38 by Jazmine Dean) COPD exacerbation (Acute) Abdominal pain (Acute) The patient is a 48 y/o F w/ PMHx: Tobacco use, Anxiety and Depression, Chronic BL LE Edema, Asthma/COPD, Chronic low back pain following w/ Dr. Davila, Morbid Obesity who presents to the [facility] ED on 09/04/18 with history of ~ 1 week URI sxs, now with 4 days of worsening dyspnea, cough, wheezing, unable to bring up her sputum, low grade temperatures. (1) Acute Sepsis secondary to Acute Hypoxic Respiratory Failure secondary to A cute on chronic COPD exacerbation: ED work-up included T 99.9, heart rate initially 114, BP 160/82, respiratory rate 20, 93% on room air, increased work of breathing, accessory muscle usage, evidence respiratory difficulties upon evaluation, CBC with WBC 13.2, globin 14.8, platelet 222 with left shift, BMP with glucose 109, lactic acid 1.2, troponin less than 0.015, EKG with no acute evidence of ischemia, chest x-ray with no acute cardia pulmonary findings, blood culture x2 pending per ED. Will admit to [facility], maintain on oxygen with wean as tolerated to room air, continue ATC duonebs, PRN albuterol, IV methylprednisolone, HOB, IS parameters, IV Doxycycline with pending sputum cultures. (2) Chronic BL LE Lymphedema: Continue home regimen including HCTZ, PRN hydralazine. (3) Morbid Obesity: Weight loss and lifestyle changes encouraged, nutrition consulted. (4) Tobacco Abuse: Encouraged cessation, inpatient consultation per RT, NR if desired. (5) Anxiety and Depression: Continue home velafaxine regimen. (6) Chronic Lumbar Back Pain: Following w/ pain management, Dr. Davila, continue home pain regimen, muscle relaxant regimen. (7) DVT Prophylaxis: SCDs, lovenox. Code Visit Inpatient E&M: 23392 Init Hosp L3
[2018-09-04] MEDS: Acetaminophen 325 MG Tablet 650 MG PO ×2 (01:32→17:20)
[2018-09-04 02:00] LABS: Magnesium 1.4 mg/dL (1.6-2.6)
[2018-09-04] MEDS: BENZOCAINE/MENTHOL 1 LOZENGE MUCOUS MEM ×2 (02:26→19:38)
[2018-09-04] MEDS: HYDROcodone Bitartrate/Apap 5/325 Tablet PO ×3 (02:51→23:14)
[2018-09-04] MEDS: Venlafaxine HCl 75 MG Tablet PO ×3 (03:22→22:04)
[2018-09-04] MEDS: tiZANidine HCl 2 MG Tablet 4 MG PO ×2 (03:22→22:04)
[2018-09-04 06:34] LABS: Absolute Lymphocyte Count 0.56 X10^3/ul (0.83-4.51); Absolute Neutrophil Count 13.1 X10^3/uL (2.0-7.7); Differential Indicated SCAN CRITERIA MET; Hematocrit 42.3 % (37-47); Hemoglobin 14.1 g/dl (12.0-15.0); Lymphocyte # 0.56 X10^3/ul (4.0); Mean Corp Hgb Conc 33.3 g/gl (32-36); Mean Corpuscular Hgb 29.9 pg (27.0-32.0); Mean Corpuscular Volume 89.8 fL (81-99); Mean Platelet Vol. 10.4 fl (6.2-12.0); Monocyte# 0.22 X10^3/uL; Monocyte% 1.6 % (0-10); Neutrophil % 94.3 % (47-70); POSITIVE COUNT NO; POSITIVE DIFFERENTIAL YES; POSITIVE MORPHOLOGY NO; Platelet Count 213 K/mm3 (150-450); RBC Distribution Width CV 12.5 % (11.6-14.6); RBC Distribution Width SD 40.7 fl (35.1-43.9); Red Blood Count 4.71 M/mm3 (4.2-5.4); White Blood Count 13.9 K/mm3 (4.4-11.0)
[2018-09-04 06:48] LABS: Anion Gap 6 (5-15); BUN 11 mg/dL (7-18); BUN/Creat Ratio 15.6 RATIO (10-20); Calcium,Total 8.5 mg/dL (8.5-10.1); Chloride 107 mmol/L (98-107); EST Glomerular Filtration Rate 95 mL/min (>60); Est Glom Filt Rate - Afr Amer 115 mL/min (>60); Estimated Creatinine Clearance 96.62 ml/min; Glucose 216 mg/dL (74-106); Potassium 3.9 mmol/L (3.5-5.1); Sodium Level 137 mmol/L (136-145)
[2018-09-04] MEDS: Ipratropium/Albuterol Sulfate 3 ML AMPUL.NEB INHALATION ×4 (07:16→19:58)
--- NOTE | 2018-09-04 08:34 | PCM.PN.BLA ---
Progress Note Patient is a 48-year-old lady with history of asthma as well as bronchitis who continues to smoke presented with progressive shortness of breath. An assessment of COPD with acute exacerbation was made patient admitted to regular nursing floor where she is currently being managed Patient has been seen and examined. Her initial assessment including history and physical, diagnostic data as well as management orders reviewed will follow.
[2018-09-04] MEDS: 0.9% Normal Saline 1,000 ML 125 ML IV (09:30)
[2018-09-04] MEDS: hydroCHLOROthiazide 25 MG Tablet PO (09:31)
[2018-09-04] MEDS: guaiFENesin 1,200 MG Tablet 1200 MG PO ×2 (09:31→22:04)
[2018-09-04] MEDS: Enoxaparin 40 MG/0.4 ML Syringe SC (09:31)
[2018-09-04] MEDS: Ondansetron 4 MG/2 ML Vial IV (12:16)
[2018-09-04] MEDS: MELATONIN 3 MG TABLET PO (23:14)
[2018-09-05 05:21] VITALS: BP 144/86; PULSE 75; RESP 18; TEMP 36.5; O2SAT 93
[2018-09-05] MEDS: BENZOCAINE/MENTHOL 1 LOZENGE MUCOUS MEM ×2 (05:27→10:03)
[2018-09-05 06:52] VITALS: PULSE 85; RESP 22; O2SAT 94
[2018-09-05] MEDS: Ipratropium/Albuterol Sulfate 3 ML AMPUL.NEB INHALATION ×2 (06:52→11:35)
[2018-09-05] MEDS: 0.9% NaCl Peripheral Flush Adult/Peds IV (09:37)
[2018-09-05 09:39] LABS: Magnesium 2.2 mg/dL (1.6-2.6)
[2018-09-05] MEDS: guaiFENesin 1,200 MG Tablet 1200 MG PO (09:44)
[2018-09-05] MEDS: Venlafaxine HCl 75 MG Tablet PO (09:44)
[2018-09-05] MEDS: hydroCHLOROthiazide 25 MG Tablet PO (09:44)
[2018-09-05] MEDS: HYDROcodone Bitartrate/Apap 5/325 Tablet PO (09:44)
[2018-09-05] MEDS: Enoxaparin 40 MG/0.4 ML Syringe SC (09:44)
--- NOTE | 2018-09-05 09:53 | DCINST_ITS ---
- Discharge Diagnoses Current Active Problems: Current Active and Chronic Problems (Last Reviewed 07/08/17 @ 10:38 by Jazmine Dean) COPD exacerbation (Acute) COPD with asthma (Chronic) Morbid obesity (Chronic) Anxiety and depression (Chronic) Chronic back pain (Chronic) Tobacco use (Chronic) Chronic acquired lymphedema (Chronic) You will use the following diet at home:: Calorie/Carbohydrate Controlled (specify 1200, 1400, etc) Your food should be the consistency of: Regular Your liquids should be the consistency of: Regular/Thin Discharge Activity: Return to Normal Activity Call your doctor if you observe: Fever of 101 or Higher, Shortness of breath, Dizziness, Fainting spells, Swelling in the ankles, Chest pain, Increased palpitations (irregular heartbeat) Allergies/Adverse Reactions: Allergies cephalexin monohydrate [From Keflex] Allergy (Verified 09/03/18 23:05) Anaphylaxis clarithromycin [From Biaxin] Allergy (Verified 09/03/18 23:05) Anaphylaxis Penicillins Allergy (Verified 09/03/18 23:05) Anaphylaxis aspirin Adverse Reaction (Verified 09/03/18 23:05) Nausea Medications to take at Discharge Albuterol Aerosols [Ventolin Aerosols] 1 unit INHALATION Q4H PRN PRN 11/04/16 tizanidine 4 mg capsule 4 mg PO QHS 07/08/17 Hydrocodone/Acetaminophen [Hydrocodone-Acetamin 5-325 mg] 1 ea PO BID 02/02/18 Venlafaxine HCl 75 mg PO BID 02/02/18 Hydrochlorothiazide [Hctz] 25 mg PO DAILY 09/03/18 Hydroxyzine HCl 25 mg PO DAILY PRN 09/03/18 Albuterol Sulfate [Ventolin Hfa] 2 puff INHALATION Q6H #1 hfa.aer.ad 09/05/18 Doxycycline 100 mg PO BID #8 capsule 09/05/18 Prednisone [Deltasone] 40 mg PO DAILY #14 tablet 09/05/18 The following prescriptions were given: Prednisone [Deltasone] 40 mg PO DAILY #14 tablet Doxycycline 100 mg PO BID #8 capsule Albuterol Sulfate [Ventolin Hfa] 2 puff INHALATION Q6H #1 hfa.aer.ad Primary Care Physician: Huey Hoff MD [Primary Care Provider] - Please follow up with your Primary Care Physician in: 3-5 days Test Results: Test results from this visit will be discussed in further detail at your follow- up appointment, if applicable.
[2018-09-05] MEDS: Mag Hydrox/Al Hydrox/Simeth 30 ML UDC PO (10:03)
[2018-09-05 11:21] VITALS: BP 157/85; PULSE 84; RESP 18; TEMP 36.5; O2SAT 95
[2018-09-05 11:35] VITALS: PULSE 85; RESP 18
--- NOTE | 2018-09-05 14:54 | DS.PCM_ITS ---
Discharge Date and Diagnosis Date of Admission: 09/04/18 Date of Discharge: 09/05/18 - Secondary Discharge Diagnosis Chronic Problems (Last Reviewed 07/08/17 @ 10:38 by Jazmine Dean) COPD with asthma (Chronic) Morbid obesity (Chronic) Anxiety and depression (Chronic) Chronic back pain (Chronic) Tobacco use (Chronic) Chronic acquired lymphedema (Chronic) Hospital Course and Treatment Imaging Results: CXR: IMPRESSION: No acute cardiopulmonary disease. No significant interval change. Consults: None Operations: None Procedures: None Summary of Care Provided: Per HPI: The patient is a 48 y/o F w/ PMHx: Tobacco use, Anxiety and Depression, Chronic BL LE Edema, Asthma/COPD, Chronic low back pain following w/ Dr. Davila, Morbid Obesity who presents to the [facility] ED on 09/04/18 with history of ~ 1 week URI sxs, now with 4 days of worsening dyspnea, cough, wheezing, unable to bring up her sputum, low grade temperatures. The patient has attempted to use her rescue inhalers heavily without marked improvement. In the ED work-up included T 99.9, heart rate initially 114, BP 160/82, respiratory rate 20, 93% on room air, CBC with WBC 13.2, globin 14.8, platelet 222 with left shift, BMP with glucose 109, lactic acid 1.2, troponin less than 0.015, EKG with no acute evidence of ischemia, chest x-ray with no acute cardia pulmonary findings, blood culture x2 pending per ED. Hospital course: 1. Acute on chronic COPD [id number] female with history of tobacco use and asthma/COPD presenting with 1 week of upper respiratory symptoms as well as 4 days of worsening dyspnea, cough, and wheezing. On admission she had no oxygen saturation less than 92% therefore she was not hypoxic and she had no evidence of an infection on chest x-ray to feel that she was septic, lactic acid was only 1.2, despite having multiple positive sirs criteria. She was feeling much better on the day of discharge and she was discharged on steroids and inhalers. Because of her worsening URI symptoms it is possible that she could have an early bacterial infection that was not caught on any imaging or objective lab data therefore she was started and discharged on 5 days of doxycycline. This plan was discussed and understood by the patient and she was agreeable to discharge today. 2. HTN/morbid obesity-she has a BMI of 43.2, notes discussed with her for lifestyle changes and dietary changes as well to decrease her weight. She was continued on her home HCTZ and hydralazine. 3. Her other medical diagnoses were evaluated in her home medications were continued where appropriate - Physical Exam General: Alert, Oriented x3, Cooperative, No apparent distress HEENT: Atraumatic, PERRLA, EOMI, Normocephalic Oral: Moist Mucosa Neck: Supple, No JVD Lungs: Normal air movement, Diminished, Rhonchi, Wheezes Cardiovascular: Regular rate, Regular Rhythm, Normal S1, Normal S2, No murmurs Abdomen: Soft, Non Tender, Non-Distended, No Hepato-splenomegaly Extremities: No edema, Capillary Refill Less than 3 Seconds Skin: No rashes, No breakdown Neurological: Neuro grossly intact, Sensory exam intact to light touch and pain Psych/Mental Status: Normal Affect, Appropriate Vital Signs Temp Pulse Resp BP Pulse Ox 97.7 F L 85 18 157/85 H 95 09/05/18 11:21 09/05/18 11:35 09/05/18 11:35 09/05/18 11:21 09/05/18 11:21 Oxygen Delivery Method Room Air Weight: 276 lb Body Mass Index (BMI) 43.2 Finger Stick Blood Glucose 113 Intake and Output for Last 24 Hours 09/03/18 09/04/18 09/05/18 23:59 23:59 23:59 Intake Total 3759 / 3759 1102 / 1102 Balance 3759 / 3759 1102 / 1102 Laboratory Tests Past 24 Hrs 09/05/18 09:18 Magnesium 2.2 Discharge Activity: Return to Normal Activity Call your doctor if you observe: Fever of 101 or Higher, Shortness of breath, Dizziness, Fainting spells, Swelling in the ankles, Chest pain, Increased palpitations (irregular heartbeat) Home Medications: Medications to take at Discharge Albuterol Aerosols [Ventolin Aerosols] 1 unit INHALATION Q4H PRN PRN 11/04/16 tizanidine 4 mg capsule 4 mg PO QHS 07/08/17 Hydrocodone/Acetaminophen [Hydrocodone-Acetamin 5-325 mg] 1 ea PO BID 02/02/18 Venlafaxine HCl 75 mg PO BID 10/10/18 Hydrochlorothiazide [Hctz] 25 mg PO DAILY 09/03/18 Hydroxyzine HCl 25 mg PO DAILY PRN 09/03/18 Albuterol Sulfate [Ventolin Hfa] 2 puff INHALATION Q6H #1 hfa.aer.ad 09/05/18 Doxycycline 100 mg PO BID #8 capsule 09/05/18 Prednisone [Deltasone] 40 mg PO DAILY #14 tablet 09/05/18 Following Prescrptions Were Given to Patient: Prednisone [Deltasone] 40 mg PO DAILY #14 tablet Doxycycline 100 mg PO BID #8 capsule Albuterol Sulfate [Ventolin Hfa] 2 puff INHALATION Q6H #1 hfa.aer.ad Primary Care Physician: Huey Hoff MD [Primary Care Provider] - Please follow up with your Primary Care Physician in: 3-5 days Please Follow Up With: Huey Hoff MD When: Sunday September 16, 2018 Disposition: Home Minutes spent on discharge:: 35 Patient Condition:: Good Medical Necessity - Tobacco Use Smoking Status: Current every day smoker Tobacco Use: Cigarettes Meaningful Use Info Meaningful Use Diagnoses (Choose all that apply): None applicable Code Visit OBSV E&M: 56049 Observation care discharge
== END 2018-09-05 12:11 | disposition home or self-care (01) ==
LOC: ED 23:26 → MS3 09-04 00:55
PROVIDERS: Admitting Provider Family Medicine; Emergency Provider Emergency Medicine; Family Provider Internal Medicine; PCP Internal Medicine; Visit Provider Family Medicine
DX: J96.01 Acute respiratory failure with hypoxia (principal); J44.1 Chronic obstructive pulmonary disease with (acute) exacerbation; E66.01 Morbid (severe) obesity due to excess calories; I10 Essential (primary) hypertension; I89.0 Lymphedema, not elsewhere classified; G89.29 Other chronic pain; M54.5 Low back pain; Z68.41 Body mass index [BMI] 40.0-44.9, adult; Z71.3 Dietary counseling and surveillance; Z79.899 Other long term (current) drug therapy; F17.210 Nicotine dependence, cigarettes, uncomplicated; F41.9 Anxiety disorder, unspecified; F32.9 Major depressive disorder, single episode, unspecified
CPT/HCPCS: 36415; 71045; 80048; 83605; 83735; 84484; 85025; 87040; 93005; 94640; 94667; 94668; 96361; 96365; 96366; 96372; 96375; 96376; 97802; 99218; 99285; 99406; J7030; J7040; A4216; G0378; J2405

== ENCOUNTER → 2018-10-31 | Outpatient (CLI) | payer OTHER, SELFPAY ==
[2018-09-16 08:53] VITALS: BMI 40.1
[2018-10-31 12:32] LABS: Anion Gap 5 (5-15); BUN 14 mg/dL (7-18); Calcium,Total 8.8 mg/dL (8.5-10.1); Chloride 109 mmol/L (98-107); Cholesterol 163 mg/dL (200); Creatinine, Serum 0.61 mg/dL (0.55-1.02); EST Glomerular Filtration Rate 112 mL/min (>60); Est Glom Filt Rate - Afr Amer 135 mL/min (>60); Glucose 107 mg/dL (74-106); High Density Lipoprotein 41 mg/dL; Potassium 3.9 mmol/L (3.5-5.1); Sodium Level 139 mmol/L (136-145); Triglycerides 92 mg/dL; Very Low Density Lipoprotein 18 mg/dL (5-40)
[2018-10-31 12:33] LABS: Hemoglobin A1c 5.8 % (4.2-6.3)
== END | disposition home or self-care (01) ==
LOC: BIMLAB 09:19
PROVIDERS: Family Provider Internal Medicine; PCP Internal Medicine; Visit Provider Internal Medicine
DX: I10 Essential (primary) hypertension (principal); E66.01 Morbid (severe) obesity due to excess calories
CPT/HCPCS: 36415; 80048; 80061; 83036

== ENCOUNTER 2018-11-14 17:01 | Emergency (ER) | payer OTHER, SELFPAY ==
[2018-11-09 10:51] VITALS: BMI 40.1
[2018-11-14 17:01] VITALS: BP 132/81; PULSE 83; RESP 16; TEMP 36.8; O2SAT 96; BMI 42.0
--- NOTE | 2018-11-14 17:03 | RAD_ITS ---
HISTORY: Status post fall with right foot pain XR Foot Min 3 Views TECHNIQUE: 3 views # of images incl. paperwork: 3 COMPARISON: None. FINDINGS: BONES/JOINTS: No acute fracture or dislocation. Joint spaces are well-preserved. SOFT TISSUES: Soft tissues appear unremarkable. No radiopaque foreign body. RAD/Foot min 3 Views IMPRESSION: 1. Negative examination. at 1721 Reported and signed by: Juan Carlos Munson MD Electronically Signed: Juan Carlos Munson MD at 17:20 EDT Tel , Service support ,
--- NOTE | 2018-11-14 17:55 | RAD_ITS ---
HISTORY: Status post fall with right ankle pain XR Ankle Min 3 Views TECHNIQUE: 3 views # of images incl. paperwork: 3 COMPARISON: None. FINDINGS: BONES: No acute fracture or dislocation. Ankle mortise is well-preserved. SOFT TISSUES: Soft tissues appear unremarkable. No radiopaque foreign body. RAD/Ankle min 3 Views IMPRESSION: 1. Negative examination. at 1824 Reported and signed by: Juan Carlos Munson MD Electronically Signed: Juan Carlos Munson MD at 18:23 EDT Tel , Service support ,
--- NOTE | 2018-11-14 17:57 | ED.VISSUMM ---
- ER Visit Summary Date of Service: 11/14/18 Chief Complaint: Ankle injury History of Present Illness: The patient is a 48 F who states that last night she went to stand up and sustained an inversion injury to the right ankle and foot. She notes swollen and painful. She notes some pain in the right lateral calf as well. Physical Examination: Afebrile vital signs stable There is swelling and tenderness over the lateral malleolus extending along onto the anterior foot along the ATF distribution. Neurovascular intact. No breaks in the skin. No fibular head tenderness. No fifth metatarsal pain. Test Results: Foot films were obtained through nursing protocol and were negative. After my examination I ordered ankle films. This was also negative for fracture Emergency Department Course and Treatment: She will be placed in Aircast. Rice therapy. Follow-up 10 to 14 days if not improved Impression: 1. Right ankle sprain This note was generated with [employer] dictation software. It may contain incorrect words, spelling, and punctuation that were not noted in review of the chart prior to signing ED Disposition - Plan for ED Patient: Disposition: Home or Assisted Living Instructions: Sprain, Ankle, with X-Ray Referrals: Huey Hoff MD [Primary Care Provider] - 10-14 Days if not better
[2018-11-14 18:44] VITALS: RESP 18
== END 2018-11-14 18:44 | disposition home or self-care (01) ==
PROVIDERS: Emergency Provider Emergency Medicine; Family Provider Internal Medicine; PCP Internal Medicine
DX: S93.401A Sprain of unspecified ligament of right ankle, initial encounter (principal); E66.9 Obesity, unspecified; J44.9 Chronic obstructive pulmonary disease, unspecified; I10 Essential (primary) hypertension; Z72.0 Tobacco use; X50.1XXA Overexertion from prolonged static or awkward postures, initial encounter; Y93.89 Activity, other specified; Y92.89 Other specified places as the place of occurrence of the external cause; Y99.8 Other external cause status
CPT/HCPCS: 73610; 73630; 99283

== ENCOUNTER → 2019-01-31 | Outpatient (CLI) | payer OTHER, SELFPAY ==
[2019-01-19 06:04] VITALS: BMI 42.0
[2019-01-31 10:55] VITALS: PULSE 101; PULSE 102; PULSE 86; PULSE 87; PULSE 98; O2SAT 92; O2SAT 94; O2SAT 95; O2SAT 97
--- NOTE | 2019-02-01 10:01 | PCM.PSN.6M ---
PSN 6 Minute Walk Test - 6 Minute Walk Test 6 Minute Walk Test: 6 Minute Walk Test PSN:6-Minute Walk Test Start: 01/31/19 10:55 Freq: Status: Active Protocol: [id number] Document 01/31/19 10:55 FR (Rec: 01/31/19 11:00 FR [id number]) 6 Minute Walk Test Date Performed 01/31/19 Time Performed 09:00 Height 5 ft 8 in Weight: 264 lb Weight in Pounds 264.[address]: Hernán Mae Assistive device used: None Pre-test Oxygen Delivery Method Room Air Pulse Ox (%) 95 Pulse Rate (60-100 beats/min) 87 Dyspnea Dez Scale (0-10) 2 Exertion Dez Scale (6-20) 8 1st minute Oxygen Delivery Method Room Air Pulse Ox (%) 95 Pulse Rate (60-100 beats/min) 98 2nd minute Oxygen Delivery Method Room Air Pulse Ox (%) 95 Pulse Rate (60-100 beats/min) 101 H 3rd minute Oxygen Delivery Method Room Air Pulse Ox (%) 94 Pulse Rate (60-100 beats/min) 102 H 4th minute Oxygen Delivery Method Room Air Pulse Ox (%) 94 Pulse Rate (60-100 beats/min) 101 H 5th minute Oxygen Delivery Method Room Air Pulse Ox (%) 95 Pulse Rate (60-100 beats/min) 101 H 6th minute Oxygen Delivery Method Room Air Pulse Ox (%) 92 Pulse Rate (60-100 beats/min) 101 H Dyspnea Dez Scale (0-10) 5 Exertion Dez Scale (6-20) 11 Post-test Oxygen Delivery Method Room Air Pulse Ox (%) 97 Pulse Rate (60-100 beats/min) 86 Full Laps Walked 15 Partial Lap, Number of Tiles Walked 14 Total Distance Walked (ft) 899 - Interpretation Interpretation: The patient ambulated 899 feet over the course of 6 minutes beginning on room air without assistive devices or breaks. Pretesting oxygen saturation was noted to be 95% on room air. With ambulation, the dylan oxygen saturation was 92%. There was no significant exertional oxygen desaturation. - Recommendations Recommendations: There is no indication for the use of supplemental oxygen at this time.
== END | disposition home or self-care (01) ==
LOC: PSN 08:40
PROVIDERS: Family Provider Internal Medicine; PCP Internal Medicine; Referring Provider Internal Medicine Critical Care Medicine; Visit Provider Internal Medicine Critical Care Medicine
DX: J44.9 Chronic obstructive pulmonary disease, unspecified (principal)
CPT/HCPCS: 94618

== ENCOUNTER → 2019-02-09 | Outpatient (CLI) | payer OTHER, SELFPAY ==
[2019-01-19 06:04] VITALS: BMI 42.0
--- NOTE | 2019-02-09 16:29 | PFTCOMP_ITS ---
COMPLETE PULMONARY FUNCTION TEST INTERPRETATION Brief HPI: Patient is a 48 year old female, currently under the care of myself, who presents to [facility] for complete pulmonary function tests secondary to diagnosis of COPD. Respiratory therapist reports good effort and reproducible results. Interpretation: Forced expiration spirometry shows a moderately severe large airways obstructive ventilatory defect with an FEV1 of 62% predicted. There is a significant bronchodilator response in FVC and FEV1 by strict ATS criteria. Spirograms are of good quality and plateau slowly, indicating slowly emptying areas of the lungs. The respiratory flow volume loop shows decreased expiratory flow rates at all lung volumes consistent with airway obstruction. Lung volumes by body plethysmography show a normal total lung capacity at 6.04 L, 108% predicted. FRC and RV are elevated out of proportion. Lung volume measurements are consistent with air-trapping. Diffusion capacity by carbon monoxide is decreased at 65% predicted. The airway resistance is slightly elevated. Compared to previous pulmonary function tests from 01/30/2016, there is been a significant improvement in FVC and FEV1 by 26% and 81% respectively. Impression: Partially reversible moderately severe large airways obstructive ventilatory defect with a symmetric reduction diffusing capacity, resulting in air trapping, and in a pattern consistent with COPD/asthma overlap syndrome.
== END | disposition home or self-care (01) ==
LOC: PSN 07:29
PROVIDERS: Family Provider Internal Medicine; PCP Internal Medicine; Referring Provider Internal Medicine Critical Care Medicine; Visit Provider Internal Medicine Critical Care Medicine
DX: J44.9 Chronic obstructive pulmonary disease, unspecified (principal)
CPT/HCPCS: 94060; 94726; 94729

== ENCOUNTER → 2019-02-16 | Outpatient (CLI) | payer OTHER, SELFPAY ==
[2019-01-19 06:04] VITALS: BMI 42.0
== END | disposition home or self-care (01) ==
LOC: SL 20:00
PROVIDERS: Family Provider Internal Medicine; PCP Internal Medicine; Referring Provider Internal Medicine Critical Care Medicine; Visit Provider Internal Medicine Critical Care Medicine
DX: G47.10 Hypersomnia, unspecified (principal)
CPT/HCPCS: 95810

== ENCOUNTER → 2019-03-28 20:00 | Outpatient (CLI) | payer OTHER, SELFPAY ==
[2019-01-19 06:04] VITALS: BMI 42.0
== END ==
LOC: SL 22:13
PROVIDERS: Family Provider Internal Medicine; PCP Internal Medicine; Referring Provider Internal Medicine Critical Care Medicine; Visit Provider Internal Medicine Critical Care Medicine
DX: G47.33 Obstructive sleep apnea (adult) (pediatric) (principal)
CPT/HCPCS: 95811

== ENCOUNTER → 2019-05-11 16:20 | Outpatient (CLI) | payer OTHER, SELFPAY ==
[2019-01-19 06:04] VITALS: BMI 42.0
[2019-05-11 20:39] LABS: Amphetamine Urine VISTA NEGATIVE (<1000 ng/mL); Barbiturate Urine VISTA NEGATIVE (< 200 ng/mL); Benzodiazepine Urine VISTA NEGATIVE (< 200 ng/mL); Cocaine Urine VISTA NEGATIVE (< 300 ng/mL); Ecstacy Urine VISTA NEGATIVE (< 500 ng/mL); Methadone Urine VISTA NEGATIVE (< 300 ng/mL); PCP Urine VISTA NEGATIVE (< 25 ng/mL); THC Urine VISTA NEGATIVE (< 50 ng/mL); Vista UDS pH Range 6
== END ==
PROVIDERS: PCP Internal Medicine; Referring Provider Anesthesiology Pain Medicine; Visit Provider Anesthesiology Pain Medicine
DX: F11.20 Opioid dependence, uncomplicated (principal)
CPT/HCPCS: 80307

== ENCOUNTER → 2019-06-27 | Outpatient (CLI) | payer OTHER, SELFPAY ==
[2019-06-14 08:38] VITALS: BMI 42.0
== END | disposition home or self-care (01) ==
LOC: SL 13:46
PROVIDERS: PCP Internal Medicine; Referring Provider Nurse Practitioner Acute Care; Visit Provider Nurse Practitioner Acute Care
DX: G47.33 Obstructive sleep apnea (adult) (pediatric) (principal)
CPT/HCPCS: 98960; G0463

== ENCOUNTER → 2019-08-15 | Outpatient (CLI) | payer OTHER, SELFPAY ==
[2019-06-14 08:38] VITALS: BMI 42.0
[2019-08-04 09:22] VITALS: BMI 41.0
--- NOTE | 2019-08-16 10:12 | PFT ---
INTRODUCTION: The patient is a 49-year-old female that presents for pulmonary function studies secondary to a diagnosis of COPD. Respiratory therapy reports good patient effort. Bronchodilators were used during testing. INTERPRETATION: Forced expiration spirometry demonstrates the presence of a very severe large airways obstructive ventilatory defect. There was a significant response to aerosolized bronchodilators noted. Spirograms are of good quality and do not plateau indicating slow emptying of the lungs. Body plethysmography was performed and reveals an elevated RV to 189% of predicted, indicative of underlying air trapping. Diffusing capacity by single breath CO is reduced to 69% predicted. When compared to previous pulmonary function studies from January 2019 there has been a significant decrease in FEV1. IMPRESSION: Partially reversible very severe large airways obstructive ventilatory defect with associated air trapping and reduction in diffusing capacity. There has been a significant reduction in FEV1 since January 2019.
== END | disposition home or self-care (01) ==
PROVIDERS: PCP Internal Medicine; Referring Provider Nurse Practitioner Acute Care; Visit Provider Nurse Practitioner Acute Care
DX: J44.9 Chronic obstructive pulmonary disease, unspecified (principal)
CPT/HCPCS: 94060; 94726; 94729

== ENCOUNTER → 2019-09-13 12:26 | Outpatient (CLI) | payer OTHER, SELFPAY ==
[2019-08-04 09:22] VITALS: BMI 41.0
== END ==
PROVIDERS: PCP Internal Medicine; Referring Provider Internal Medicine Critical Care Medicine; Visit Provider Internal Medicine Critical Care Medicine
DX: Z20.828 Contact with and (suspected) exposure to other viral communicable diseases (principal)
CPT/HCPCS: 87635; G2023; U0004

== ENCOUNTER → 2020-04-01 07:05 | Outpatient (CLI) | payer OTHER, SELFPAY ==
[2020-02-19 14:04] VITALS: BMI 44.1
--- NOTE | 2020-04-01 07:52 | NEURO_ITS ---
NCS and/or EMG Patient Report Ordering Doctor: Evan Smith NP DATE OF SERVICE: 04/01/20 Indication: Several months of right hand and wrist pain, throbbing and intermittent numbness. Symptoms are exacerbated by sleep and driving. She experiences similar, but less severe symptoms on the left side. Evaluate for median ne uropathy. Findings: Nerve conduction studies were performed in the right and left upper extremities. The right median motor study recording the abductor pollicis brevis showed a borderline amplitude, prolonged distal latency and normal conduction velocity. The right ulnar motor study recording the abductor digiti minimi showed a normal amplitude, normal distal latency and normal conduction velocity. No conduction block was present across the elbow. Focal slowing was present across the elbow. The right median sensory response recording digit two showed a reduced amplitude, prolonged latency and slowed conduction velocity. The right ulnar sensory response recording digit five showed a normal amplitude, latency and conduction velocity. The right radial sensory response recording over the extensor snuff box showed a normal amplitude, latency and conduction velocity. The left median motor study recording the abductor pollicis brevis showed a normal amplitude and prolonged distal latency. The left median sensory response recording digit two showed a reduced amplitude, prolonged latency and slowed conduction velocity. Needle EMG of the right upper extremity muscles was performed. No denervation was seen in any muscle. The right abductor pollicis brevis muscle demonstrated motor units which were large amplitude, long duration, normal phases and slightly reduced recruitment. All motor unit morphology, activation and recruitment patterns were normal. Needle EMG of the left abductor pollicis brevis muscle was performed. No denervation was seen. Motor units demonstrated slightly increased polyphasia, but were otherwise unremarkable with regard to their morphology, activation, and recruitment patterns. Impression: This is an abnormal study. 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 The pathophysiology is predominantly demyelination, with some evidence of secondary axonal loss. In addition, there is electrophysiologic evidence of a very mild ulnar neuropathy across the right elbow without axonal loss. There is no evidence of a superimposed cervical radiculopathy in the right upper extremity. Levon Chicas D.O.
== END ==
PROVIDERS: PCP Internal Medicine; Referring Provider Nurse Practitioner Family; Visit Provider Nurse Practitioner Family
DX: G56.03 Carpal tunnel syndrome, bilateral upper limbs (principal)
CPT/HCPCS: 95885; 95886; 95909; 95910

== ENCOUNTER 2020-05-14 05:33 | Day surgery (SDC) | payer OTHER, SELFPAY ==
[2020-02-19 14:04] VITALS: BMI 44.1
[2020-05-14] VITALS (8 sets, daily range): BP systolic 113–129; BP diastolic 74–88; PULSE 64–77; RESP 16–18; TEMP 36.1–36.4; O2SAT 93–95; BMI 43.0
[2020-05-14] MEDS: Lactated Ringers 1,000 ML 100 ML IV (06:30)
--- NOTE | 2020-05-14 07:04 | HP.PCM_ITS ---
History and Physical Date of Admission: 05/14/20 Intake Intake Visit Reasons: bilat Hands Chief Complaint: BL hands Accompanied by: self Is patient in pain?: Yes Pain scale (1-10): 4 Allergies cephalexin monohydrate [From Keflex] Allergy (Verified 02/19/20 14:09) Anaphylaxis clarithromycin [From Biaxin] Allergy (Verified 02/19/20 14:09) Anaphylaxis Penicillins Allergy (Verified 02/19/20 14:09) Anaphylaxis aspirin Adverse Reaction (Verified 02/19/20 14:09) Nausea Medications meloxicam 15 mg tablet 15 mg PO DAILY 09/16/18 [History Confirmed 04/29/20] hydrocortisone 2.5 % topical cream 1 applic TOPICAL BID 14 Days #30 g 12/06/18 [Rx Confirmed 04/29/20] albuterol sulfate 1.25 mg INHALATION Q4H PRN PRN #180 ml 08/04/19 [Rx Confirmed 04/29/20] cetirizine 10 mg capsule 10 mg PO HS #30 cap 08/04/19 [Rx Confirmed 04/29/20] fluticasone fur. 100 mcg-umeclid 62.5 mcg-vilant 25 mcg inhalat.powder 1 inh INHALATION DAILY #60 ea 08/04/19 [Rx Confirmed 04/29/20] hydrochlorothiazide 25 mg tablet 25 mg PO DAILY #90 tab 08/10/19 [Rx Confirmed 04/29/20] venlafaxine 100 mg tablet 100 mg PO BID #180 tab 08/10/19 [Rx Confirmed 04/29/20] multivitamin 1 tab PO DAILY #90 tab 08/15/19 [Rx Confirmed 04/29/20] meclizine 25 mg chewable tablet See Rx Instructions .ROUTE .COMPLEX #30 tab 09/14/19 [Rx Confirmed 04/29/20] valacyclovir 1 gram tablet See Rx Instructions .ROUTE .COMPLEX #30 tab 09/14/19 [Rx Confirmed 04/29/20] hydrocortisone 2.5 % topical cream 1 applic TOPICAL BID PRN #30 g 12/20/19 [Rx Confirmed 04/29/20] montelukast 10 mg tablet 10 mg PO QPM #30 tab 01/25/20 [Rx Confirmed 04/29/20] albuterol sulfate 90 mcg/actuation aerosol inhaler 2 puff INHALATION Q6H #1 hfa.aer.ad 10/20/20 [Rx Confirmed 04/29/20] buspirone 10 mg tablet 10 mg PO BID #180 tab 02/19/20 [Rx Confirmed 04/29/20] compress.stocking,knee,reg,lrg See Rx Instructions .ROUTE .MEDSUPPLY #2 ea 02/19/20 [Rx Confirmed 04/29/20] omeprazole 40 mg capsule,delayed release 40 mg PO DAILY #90 cap 02/19/20 [Rx Confirmed 04/29/20] ondansetron HCl 4 mg tablet 4 mg PO BID-TID PRN #60 tab 02/19/20 [Rx Confirmed 04/29/20] propranolol 60 mg capsule,24 hr,extended release 60 mg PO QHS #90 cap 02/19/20 [Rx Confirmed 04/29/20] tizanidine 4 mg tablet 4 mg PO BID PRN 02/19/20 [History Confirmed 04/29/20] fluticasone propionate 50 mcg/actuation nasal spray,suspension 2 spray INTRANASAL DAILY #16 g 02/22/20 [Rx Confirmed 04/29/20] hydroxyzine HCl 25 mg tablet 25 mg PO BID PRN #30 tab 04/12/20 [Rx Confirmed 04/29/20] hydrocodone 5 mg-acetaminophen 325 mg tablet tab PO 04/29/20 [History Confirmed 04/29/20] FOR[facility]LY [facility] Medical History History of polycystic ovaries (Acute) Migraines (Acute) Seasonal allergies (Acute) Shingles (Acute) Asthma (Chronic) COPD (chronic obstructive pulmonary disease) (Chronic) Chronic low back pain (Chronic) Surgical History History of adenoidectomy (Acute) History of appendectomy (Acute) History of bladder repair surgery (Acute) History of hernia repair (Acute) History of hysterectomy (Acute) History of removal of cyst (Acute) History of tubal ligation (Acute) H/O right inguinal hernia repair (Inactive) H/O: hysterectomy (Inactive) S/P endometrial ablation (Inactive) S/P removal of left ovary (Inactive) bladder sling (Inactive) Family History Mother Myocardial infarction Heart disease CVA (cerebral vascular accident) Hypertension Diabetes Sister Uterine cancer Other Alcoholism Anxiety and depression Hyperlipemia Seizures Social History (Updated 04/29/20 @ 10:[address] Gm Lorenzo DO) Tobacco: How many years used: 31 alcohol intake: never substance use type: does not use what type of physical activity do you participate in: none HPI bilat Hands: Details: Parts of this documentation were recorded by a scribe, this documentation accurately reflects the service provided and the decisions made by me, Dr. Gm Lorenzo DO 04/29/20 [id number]. FORREST NORIEGA is a 49 year old F NEW patient here today for Bl hand numbness and tingling. She states she has had the numbness for about 3-4 months. She has had and EMG completed which showed carpal tunnel syndrome and ulnar neuropathy on the right side. She has right hand numbness of all her fingers along with some numbness to the elbow and if she bumps the right wrist then she states that she has throbbing and increased pain over the ring and pinky fingers. She has left hand numbness and tingling of the thumb and occasionally into the elbow. She states that when she is sleeping the numbness and pain is worse. She states that she drops things often with the right hand. She has been doing night splinting for about 2 months. Denies any injections. States that she has had a left ulnar nerve transposition which was done in [address] [facility]. ROS Const Reports system reviewed and no additional complaints, except as docu Eyes Reports system reviewed and no additional complaints, except as docu ENT Reports system reviewed and no additional complaints, except as docu Card Reports system reviewed and no additional complaints, except as docu Resp Reports system reviewed and no additional complaints, except as docu GI Reports system reviewed and no additional complaints, except as docu Reports system reviewed and no additional complaints, except as docu Musc Reports joint pain, Reports numbness Skin/Breast Reports system reviewed and no additional complaints, except as docu Neuro Yes numbness Psych Reports system reviewed and no additional complaints, except as docu Endo Reports system reviewed and no additional complaints, except as docu Rafal/Lymph Reports system reviewed and no additional complaints, except as docu Aller/Immun Reports system reviewed and no additional complaints, except as docu Ortho Exam General General: Yes no acute distress Neurologic: Yes alert, Yes oriented x3 Psychologic: Yes reasonable and appropriate Right Wrist/Hand Skin/Wound: No Swelling, No Ecchymosis Right Wrist: Yes Durken's Test, Tinel's (positive sensation into all digits) and Phalen's; no Vy's Test, Thenar Atrophy or Hypothenar Atrophy Left Wrist/Hand Skin/Wound: No Swelling, No Ecchymosis, No erythema Left Wrist: Yes Durken's Test, Yes Tinel's and Yes Phalen's Right Elbow Test: Yes Tinel's (radial digit symtoms) ELBOW: negative direct compression/hyper flexion of the elbow Supplemental Info 04/01/2020 EMG nerve conduction study bilateral upper extremities: Mild to moderate carpal tunnel bilateral mild cubital tunnel right Assessment & Plan Problems 1. Bilateral carpal tunnel syndrome G56.03 2. Ulnar neuropathy at elbow of right upper extremity G56.21 Plan Patient educated that she has mild to moderate carpal tunnel syndrome along with mild right sided ulnar neuropathy as reported by the EMG and she does show clinical findings. Treatment options are do nothing or splinting or carpal tunnel release and then if this is helpful with the right ulnar neuropathy symptoms then we can further discuss ulnar decompression/transposition. Patient wishes to proceed with right carpal tunnel release at this time. She will need to take her rings off the day of surgery. Educated that the pressure is released off the nerve but the symptoms my not subside. Reviewed the pre-operative plans with the patient. Risks and benefits of the procedure were fully explained, including but not limited to infection, neurovascular injury, continued pain, arthritis, stiffness, need for further surgery, re-injury, DVT, PE, general risks of anesthesia, and loss of limb or life. The patient understands all the risks and does wish to proceed with written consent. Follow up 2 weeks post op or sooner if pain, swelling, numbness or associated symptoms, or concerns develop. All questions answered. Patient in agreement of plan. 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 There are no clinical changes since date of exam
--- NOTE | 2020-05-14 07:07 | PCM.DC.ORTHO ---
Discharge Diet: No Restrictions Keep extremity elevated above heart level: Operative Extremity Call your doctor if you observe: Shortness of breath, Chest pain Additional Instructions: Ice and elevate operative extremity next 72 hours. Keep dressing on clean and dry for 48 hours then may remove and allow warm soapy water to rinse over incision but do not submerge until sutures are out. Then apply bandaid over incision and change daily. encourage finger range of motion. Not lift more than 1/2 pound. Allergies/Adverse Reactions: Allergies cephalexin monohydrate [From Keflex] Allergy (Verified 05/14/20 06:11) Anaphylaxis clarithromycin [From Biaxin] Allergy (Verified 05/14/20 06:11) Anaphylaxis Penicillins Allergy (Verified 05/14/20 06:11) Anaphylaxis aspirin Adverse Reaction (Verified 05/14/20 06:11) Nausea Medications to take at Discharge meloxicam 15 mg tablet 15 mg PO DAILY 09/16/18 hydrocortisone 2.5 % topical cream 1 applic TOPICAL BID 14 Days #30 g 12/06/18 albuterol sulfate 1.25 mg INHALATION Q4H PRN PRN #180 ml 08/04/19 cetirizine 10 mg capsule 10 mg PO HS #30 cap 08/04/19 fluticasone fur. 100 mcg-umeclid 62.5 mcg-vilant 25 mcg inhalat.powder 1 inh INHALATION DAILY #60 ea 08/04/19 hydrochlorothiazide 25 mg tablet 25 mg PO DAILY #90 tab 08/10/19 venlafaxine 100 mg tablet 100 mg PO BID #180 tab 08/10/19 multivitamin 1 tab PO DAILY #90 tab 08/15/19 meclizine 25 mg chewable tablet See Rx Instructions .ROUTE .COMPLEX #30 tab 09/14/19 valacyclovir 1 gram tablet See Rx Instructions .ROUTE .COMPLEX #30 tab 09/14/19 hydrocortisone 2.5 % topical cream 1 applic TOPICAL BID PRN #30 g 12/20/19 montelukast 10 mg tablet 10 mg PO QPM #30 tab 01/25/20 albuterol sulfate 90 mcg/actuation aerosol inhaler 2 puff INHALATION Q6H #1 hfa.aer.ad 02/13/20 buspirone 10 mg tablet 10 mg PO BID #180 tab 02/19/20 compress.stocking,knee,reg,lrg See Rx Instructions .ROUTE .MEDSUPPLY #2 ea 02/19/20 omeprazole 40 mg capsule,delayed release 40 mg PO DAILY #90 cap 02/19/20 ondansetron HCl 4 mg tablet 4 mg PO BID-TID PRN #60 tab 02/19/20 propranolol 60 mg capsule,24 hr,extended release 60 mg PO QHS #90 cap 02/19/20 tizanidine 4 mg tablet 4 mg PO BID PRN 02/19/20 fluticasone propionate 50 mcg/actuation nasal spray,suspension 2 spray INTRANASAL DAILY #16 g 02/22/20 hydroxyzine HCl 25 mg tablet 25 mg PO BID PRN #30 tab 04/12/20 hydrocodone 5 mg-acetaminophen 325 mg tablet 1 tab PO BID 04/29/20 Hydrocodone Bitart/Apap 5-325 [[place] 5MG-325MG] 1 - 2 tablet PO Q4H PRN PRN 5 Days #20 tablet 05/14/20 The following prescriptions were given: Hydrocodone Bitart/Apap 5-325 [[place] 5MG-325MG] 1 - 2 tablet PO Q4H PRN PRN 5 Days #20 tablet PRN Reason: Pain Transmission Status: Sent to [facility] Primary Care Physician: Huey Hoff MD [Primary Care Provider] - Test Results: Test results from this visit will be discussed in further detail at your follow-up appointment, if applicable. Please Follow Up With: Gm Lorenzo DO - 2 weeks
[2020-05-14] MEDS: Bupiv/Epi 0.5% Mpf 30 ML Vial (07:37)
--- NOTE | 2020-05-14 07:37 | PCM.OPRPT ---
Report of Operation Date of Procedure: 05/14/20 Description of Surgical Findings:: Preoperative diagnosis; right carpal tunnel syndrome Postoperative diagnosis; same Procedure: Right open carpal tunnel release Anesthesia: Local with MAC Tourniquet time; 10 minutes 250 mm Hg Complications: None Indication for procedure; This is a 49-year-old female with long-standing symptoms consistent with carpal tunnel syndrome the patient did have electrodiagnostic evidence of this and has failed conservative treatment. Risks benefits and alternatives were reviewed including risks of bleeding infection nerve artery tissue damage need for further surgery and continued pain and symptoms, hypersensitivity to scar and Pillar pain. Procedure; The patient was met in the preoperative holding area the operative extremity was identified by both patient and physician and was marked the patient was met by anesthesia and brought back to the operating room and transferred to the operating table in the supine position. Aanesthesia was started. A well-padded tourniquet was placed on the operative upper extremity. The patient was prepped and draped in the usual sterile fashion. A timeout was called to ensure the proper patient procedure and extremity were being contemplated. 0.5 percent Marcaine with epinephrine was injected into the incisional area. An Esmarch was used to exsanguinate the extremity. The tourniquet was inflated to 250 mmHg. A midline incision was made with a 15 blade scalpel between the thenar and hypothenar eminence. This was carried down through the skin and subcutaneous tissue. Danisha retractors were then used, a deep blade scalpel was used to make a deep incision in the palmar aponeurosis. The danisha retractors were then placed deep to this and the transverse carpal ligament was identified a perforation was made with a scalpel and a Littler scissors were used to complete the release of the transverse carpal ligament distally under direct visualization with the tips facing ulnarly until the perivascular fat was reached. Then turning our attention proximally using a tension slide technique the proximal extent of the transverse carpal ligament was released . There was noted to be hourglass configuration to the median nerve and hypertrophy of the transverse carpal ligament without other findings. The wound was thoroughly irrigated and was closed with 4-0 nylon vertical mattress stitches. Dressing was applied in the form of xeroform 4 x 4, web roll and an vini wrap. Tourniquet was let down there is no intraoperative complications patient tolerated the procedure well and was transferred to the PACU. All counts were correct.
== END 2020-05-14 08:53 | disposition home or self-care (01) ==
LOC: SDC 05:35 → AC 05:35
PROVIDERS: PCP Internal Medicine; Referring Provider Orthopaedic Surgery; Visit Provider Orthopaedic Surgery
PROC: (CPT 64721; principal; 2020-05-14 07:00)
DX: G56.01 Carpal tunnel syndrome, right upper limb (principal); G56.21 Lesion of ulnar nerve, right upper limb; J44.9 Chronic obstructive pulmonary disease, unspecified; I10 Essential (primary) hypertension; G47.30 Sleep apnea, unspecified; K21.9 Gastro-esophageal reflux disease without esophagitis; E78.00 Pure hypercholesterolemia, unspecified; F41.9 Anxiety disorder, unspecified; F32.9 Major depressive disorder, single episode, unspecified; Z20.822 Contact with and (suspected) exposure to COVID-19; Z79.1 Long term (current) use of non-steroidal anti-inflammatories (NSAID); Z79.51 Long term (current) use of inhaled steroids; Z79.899 Other long term (current) drug therapy
CPT/HCPCS: 01810; 64721; 87426; C9803; J7120; J2405

== ENCOUNTER 2020-07-15 10:58 | Emergency (ER) | payer OTHER, SELFPAY ==
[2020-07-15 10:59] VITALS: BP 163/109; PULSE 83; RESP 16; TEMP 36.6; O2SAT 98; BMI 43.9
[2020-07-15 11:05] VITALS: BP 163/109; PULSE 83; RESP 16; TEMP 36.6; O2SAT 98
--- NOTE | 2020-07-15 11:18 | ED.DCSUM_ITS ---
History of Present Illness Chief Complaint: Bite Informant: Patient Occurred: Days - 2 Mechanism/Context: - - bitten by cat Context: Gradual Onset Timing: Continuous Quality of Pain: Throbbing Location: left middle finger Current Severity: Severe Maximum Severity: Severe Worsened by: moving Relieved by: nothing Associated Symptoms: Loss of Funtion - can't move due to pain/swelling. Negative for: Parasthesia, Weakness Narrative: Patient states she has a cat that is disabled and she has to hold her while she feeds her, couple days ago the cat went to eat and accidentally bit her in the finger. The cat has not been ill. She states the affected finger bled a little bit from the wound shortly afterwards, and subsequently started hurting more and more and getting more red and swollen, and today she states it is fairly severe. She has had small amounts of purulent material coming from the wounds at times. She denies any systemic symptoms or fevers/chills. [id number]. Tetanus Immunization: >10 years - Past Medical History (1) CARTER (obstructive sleep apnea) Status: Chronic (2) Anxiety and depression Status: Chronic (3) COPD with asthma Status: Chronic (4) Chronic back pain Status: Chronic (5) Hypertension Status: Chronic Past Medical History - Allergies and Home Meds Allergies/Adverse Reactions: Allergies cephalexin monohydrate [From Keflex] Allergy (Verified 07/15/20 10:59) Anaphylaxis ciprofloxacin Allergy (Verified 07/15/20 12:44) Rash clarithromycin [From Biaxin] Allergy (Verified 07/15/20 10:59) Anaphylaxis Penicillins Allergy (Verified 07/15/20 10:59) Anaphylaxis aspirin Adverse Reaction (Verified 07/15/20 10:59) Nausea Primary Care Physician: Huey Hoff MD [Primary Care Provider] - Surgical History: - - Hysterectomy, bladder sling, right inguinal hernia repair, endometrial ablation, left oophorectomy. Lives: Spouse/ Significant Other Smoking Status: Current every day smoker - Family History Maternal Family History: Family History (Last Reviewed 02/19/20 @ 14:12 by Nusrat Driscoll) Mother Myocardial infarction Heart disease CVA (cerebral vascular accident) Hypertension Diabetes Sister Uterine cancer Other Alcoholism Anxiety and depression Hyperlipemia Seizures Family History: Reports: Diabetes, High Cholesterol, Heart Disease, Hypertension, Stroke Paternal Family History: Family History (Last Reviewed 02/19/20 @ 14:12 by Nusrat Driscoll) Mother Myocardial infarction Heart disease CVA (cerebral vascular accident) Hypertension Diabetes Sister Uterine cancer Other Alcoholism Anxiety and depression Hyperlipemia Seizures Family History: Reports: - Review of Systems General: Denies: Chills, Fever, Sweats Eyes: Denies: Visual changes - bilaterally, Diplopia ENT: Denies: Rhinorrhea, Sore throat Cardiovascular: Denies: Chest pain, Palpitations Respiratory: Denies: Dyspnea, Cough, Dyspnea on exertion Gastrointestinal: Denies: Abdominal pain, Nausea, Vomiting, Diarrhea, Melena, Hematochezia Genitourinary: Denies: Dysuria, Hematuria, Frequency Musculoskeletal: Reports: Swelling, Extremity Pain. Denies: Back pain Skin: Reports: Rash, Wounds Neurological: Denies: Headache, Weakness, Numbness Physical Exam Vital Signs/Narrative: Vital Signs Temp Pulse Resp BP Pulse Ox 07/15/20 11:05 97.8 F 83 16 163/109 H 98 07/15/20 10:59 97.8 F 83 16 163/109 H 98 General: Well nourished, Well developed, Obese, - - NAD Head: Normocephalic, Atraumatic Eyes: Perrl, EOMI ENT: No Trauma, Moist Mucous Membranes Neck: Nontender, Full ROM Cardiovascular: Regular rate, Regular rhythm, No murmurs. Negative for: Ta chycardia Respiratory: No distress, CTA bilaterally, Chest nontender Abdomen: Soft, Nontender, Nondistended, Normal bowel sounds Back: Nontender Extremeties: Holding left middle finger in neutral position of comfort, pain with any movement. It is red and swollen with obvious puncture wounds both vo lar and dorsal aspects at the middle phalanx consistent with a cat bite. No tenderness in the flexor or extensor tendons distribution proximal to the MCPJ, including wrist/forearm. Skin: Rash - Erythema/tenderness throughout the left middle finger consistent with cellulitis. No fluctuance or abscess. No discharge expressible from the small bite wounds at the middle phalanx. No lymphangitis proximal to the finger. Volar aspect, redness does not extend past MCPJ, dorsally, just beyond. Neurological: Alert, Oriented x3, Cranial nerves II-XII grossly intact, Normal Strength, Normal Sensation, Normal Gait Psychological: Normal affect, Normal Mood Diagnostic/Tx/Re-eval Laboratory Results 07/15/20 07/15/20 11:35 11:35 WBC 7.2 RBC 5.16 Hgb 15.6 H Hct 46.3 MCV 89.7 MCH 30.2 MCHC 33.7 RDW Std Deviation 41.2 RDW Coeff of Eddie 12.4 Plt Count 230 MPV 10.2 Immature Gran % (Auto) 0.100 Neut % (Auto) 56.7 Lymph % (Auto) 35.5 Archuleta % (Auto) 6.6 Eos % (Auto) 1.0 Baso % (Auto) 0.1 Absolute Neuts (auto) 4.1 Absolute Lymphs (auto) 2.57 Nucleated RBC % 0 Sodium 138 Potassium 4.0 Chloride 109 H Carbon Dioxide 28.0 Anion Gap 1 L BUN 12 Creatinine 0.49 L Estim Creat Clear Calc 136.54 Est GFR (MDRD) Af Amer 172 Est GFR (MDRD) Non-Af 142 BUN/Creatinine Ratio 24.4 H Glucose 88 Calcium 8.8 - Medical Decision Making Patient has multiple medication/antibiotic allergies, including anaphylactoid reactions to both penicillins and cephalexin. Therefore since she states she has had Levaquin okay in the past, she was treated with IV ciprofloxacin. She developed an itchy rash on the arm that contained the IV, so the Cipro was stopped about senior care through and she was given Benadryl, resulting in resolution of the itching and rash. Therefore, she was given oral doxycycline. I spent some time trying to get a hold of Dr. Sin with plastics but was not able. I discussed options with the patient including transfer to a tertiary care center where plastics may be able to evaluate this, but she and declined and preferred to have me perform bedside incision and drainage. As I discussed with the patient, she is not examining like a flexor tenosynovitis, but with the delayed presentation and festering infection, it may need operative incision and drainage even with antibiotics. They understand this but prefer to have bedside I&D so that they can avoid transfer, and will certainly return if worse. See the procedure note, procedure was successful and there were no complications. After the procedure, I had her soak in saline/chlorhexidine for about 15 minutes. Then nursing placed in AlumaFoam splint after a bulky dressing with bacitracin. Patient is comfortable with the overall plan. Procedures Procedure(s): Incision and drainage abscess simple --digital block was performed using 6 cc of plain 1% lidocaine after isopropanol prep at the dorsum of the left middle finger, good anesthesia was obtained, no complications, tolerated well. All 3 puncture sites were nicked superficially with a #10 blade, the volar wound had several drops of purulent material expressible. It was probed and deloculated gently/bluntly with scissors, taking care not to probe into the tendon sheath. The dorsal wound may be had a scant amount of pus in either 1 but there was no cavity like there was on the volar side. Tolerated well, no complications. Too small for packing. ED Disposition - Plan for ED Patient: Disposition: Home or Assisted Living Diagnosis: Cat bite of left hand including fingers with infection Instructions: ED Cat Bite, ED Abscess Incision And Drainage Prescriptions: Doxycycline Hyclate 100 mg PO BID #20 capsule Transmission Status: Pending to [id number] Hydrocodone Bitart/Apap 5-325 [[place] 5MG-325MG] 1 tablet PO Q4H PRN PRN 2 Days #10 tablet PRN Reason: Pain Transmission Status: Received by [id number] Referrals: Quincy Sin MD [STAFF PHYSICIAN] - 3-5 Days if not improving
[2020-07-15 11:43] LABS: Absolute Lymphocyte Count 2.57 X10^3/uL (0.83-4.51); Absolute Neutrophil Count 4.1 X10^3/uL (2.0-7.7); Basophil# 0.01 X10^3/uL; Basophil% 0.1 % (0-1); Eosinophil# 0.07 X10^3/uL; Hematocrit 46.3 % (37-47); Hemoglobin 15.6 g/dL (12.0-15.0); Lymphocyte # 2.57 X10^3/ul (4.0); Lymphocyte % 35.5 % (19-41); Mean Corp Hgb Conc 33.7 g/dL (32-36); Mean Corpuscular Hgb 30.2 pg (27.0-32.0); Mean Corpuscular Volume 89.7 fL (81-99); Mean Platelet Vol. 10.2 fl (6.2-12.0); Monocyte# 0.48 X10^3/uL; Monocyte% 6.6 % (0-10); NRBC Flagged by Analyzer 0 % (0-5); Neutrophil % 56.7 % (47-70); Platelet Count 230 K/mm3 (150-450); RBC Distribution Width CV 12.4 % (11.6-14.6); RBC Distribution Width SD 41.2 fl (35.1-43.9); Red Blood Count 5.16 M/mm3 (4.2-5.4); White Blood Count 7.2 K/mm3 (4.4-11.0)
[2020-07-15 11:57] LABS: Anion Gap 1 (5-15); BUN 12 mg/dL (7-18); BUN/Creat Ratio 24.4 RATIO (10-20); Calcium,Total 8.8 mg/dL (8.5-10.1); Chloride 109 mmol/L (98-107); Creatinine, Serum 0.49 mg/dL (0.55-1.02); EST Glomerular Filtration Rate 142 mL/min (>60); Est Glom Filt Rate - Afr Amer 172 mL/min (>60); Estimated Creatinine Clearance 136.54 ml/min; Glucose 88 mg/dL (74-106); Sodium Level 138 mmol/L (136-145)
[2020-07-15] MEDS: Diphth,Pertuss(Acell),Tet Vac 0.5 ML Vial IM (12:10)
[2020-07-15] MEDS: Ciprofloxacin 400 MG/200 ML BAG 200 MG IV (12:11)
[2020-07-15] MEDS: Morphine 4 MG/ML Syringe IV (12:37)
[2020-07-15] MEDS: DiphenhydrAMINE 50 MG/ML Syringe 25 MG IV (12:49)
[2020-07-15 14:36] VITALS: BP 142/82; PULSE 72; RESP 15; TEMP 36.4; O2SAT 99
[2020-07-15] MEDS: Doxycycline 100 MG CAPSULE PO (14:41)
[2020-07-15 15:00] VITALS: BP 140/79; PULSE 70; RESP 15; TEMP 36.6; O2SAT 98
[2020-07-15] MEDS: Lidocaine 1% (20 ml mdv) 20 ML Vial INFILT (16:38)
[2020-07-15 16:42] VITALS: BP 142/81; PULSE 89; RESP 17; O2SAT 98
== END 2020-07-15 16:43 | disposition home or self-care (01) ==
PROVIDERS: Emergency Provider Emergency Medicine; PCP Internal Medicine
DX: S61.253A Open bite of left middle finger without damage to nail, initial encounter (principal); L08.9 Local infection of the skin and subcutaneous tissue, unspecified; I10 Essential (primary) hypertension; J44.9 Chronic obstructive pulmonary disease, unspecified; F41.9 Anxiety disorder, unspecified; F32.9 Major depressive disorder, single episode, unspecified; F17.200 Nicotine dependence, unspecified, uncomplicated; E66.9 Obesity, unspecified; Z79.51 Long term (current) use of inhaled steroids; Z79.899 Other long term (current) drug therapy; W55.01XA Bitten by cat, initial encounter; Y93.89 Activity, other specified; Y92.009 Unspecified place in unspecified non-institutional (private) residence as the place of occurrence of the external cause; Y99.8 Other external cause status
CPT/HCPCS: 26010; 10060; 80048; 85025; 90715; 96365; 96375; 99285; J7050; A4216; J0744

== ENCOUNTER → 2020-07-25 17:07 | Outpatient (CLI) | payer OTHER, SELFPAY ==
[2020-07-15 10:59] VITALS: BMI 43.9
[2020-07-25 18:12] LABS: Amphetamine Urine VISTA NEGATIVE (<1000 ng/mL); Barbiturate Urine VISTA NEGATIVE (< 200 ng/mL); Benzodiazepine Urine VISTA NEGATIVE (< 200 ng/mL); Cocaine Urine VISTA NEGATIVE (< 300 ng/mL); Ecstacy Urine VISTA NEGATIVE (< 500 ng/mL); Methadone Urine VISTA NEGATIVE (< 300 ng/mL); PCP Urine VISTA NEGATIVE (< 25 ng/mL); THC Urine VISTA NEGATIVE (< 50 ng/mL); Vista UDS pH Range 6
== END ==
PROVIDERS: PCP Internal Medicine; Referring Provider Anesthesiology Pain Medicine; Visit Provider Anesthesiology Pain Medicine
DX: F11.20 Opioid dependence, uncomplicated (principal)
CPT/HCPCS: 80307

== ENCOUNTER → 2020-11-08 08:45 | Outpatient (CLI) | payer OTHER, SELFPAY ==
[2020-11-07 12:33] VITALS: BMI 41.3
[2020-11-08 08:46] LABS: Mucous, Urine 0 SEEN /hpf (<or=2+); White Blood Cells 0 SEEN /hpf (0-5)
[2020-11-08 12:04] LABS: Color, Urine Yellow (Yellow); Glucose, Dipstick Normal (Normal); Ketone-Dipstick Negative (Negative); Leukocyte Esterase-Dipstick Negative /ul (Negative); Nitrite-Dipstick Negative (Negative); Occult Blood-Urine 25 /ul (Negative); Protein-Dipstick Negative (Negative); Specific Gravity, Urine 1.015 (1.002-1.030); Urine Bilirubin Dipstick Negative (Negative); Urine Clarity Sl. Cloudy (Clear); Urine Urobilinogen Normal (Normal)
[2020-11-08 12:08] LABS: Amorphous Sediment 2+; Bacteria 1+ /hpf (None Seen); Red Blood Cells-Urine 0-5 SEEN /hpf (0-5); Squamous Epithelial Cells - UA 0-5 SEEN /hpf (5-10)
== END ==
PROVIDERS: PCP Internal Medicine; Referring Provider Physician Assistant; Visit Provider Physician Assistant
DX: R30.0 Dysuria (principal); R35.0 Frequency of micturition
CPT/HCPCS: 81001; 87086; 87088

== ENCOUNTER 2021-07-24 13:42 | Outpatient (CLI) | payer OTHER, SELFPAY ==
[2021-07-24 15:55] LABS: Amphetamine Urine VISTA NEGATIVE (<1000 ng/mL); Barbiturate Urine VISTA NEGATIVE (< 200 ng/mL); Benzodiazepine Urine VISTA NEGATIVE (< 200 ng/mL); Cocaine Urine VISTA NEGATIVE (< 300 ng/mL); Ecstacy Urine VISTA NEGATIVE (< 500 ng/mL); Methadone Urine VISTA NEGATIVE (< 300 ng/mL); PCP Urine VISTA NEGATIVE (< 25 ng/mL); THC Urine VISTA NEGATIVE (< 50 ng/mL); Vista UDS pH Range 6
== END 2021-07-24 23:59 | disposition home or self-care (01) ==
LOC: LAB 13:44
PROVIDERS: PCP Internal Medicine; Visit Provider Anesthesiology Pain Medicine
DX: F11.20 Opioid dependence, uncomplicated (principal)
CPT/HCPCS: 80307

== ENCOUNTER 2021-07-31 09:48 | Outpatient (CLI) | payer OTHER, SELFPAY ==
[2021-07-31 12:09] LABS: Absolute Lymphocyte Count 2.51 X10^3/uL (0.83-4.51); Absolute Neutrophil Count 3.2 X10^3/uL (2.0-7.7); Basophil# 0.03 X10^3/uL; Basophil% 0.5 % (0-1); Eosinophil# 0.07 X10^3/uL; Eosinophils% 1.1 % (0-5); Hematocrit 47.6 % (37-47); Hemoglobin 15.6 g/dL (12.0-15.0); Lymphocyte # 2.51 X10^3/ul (0.83-4.51); Lymphocyte % 40.4 % (19-41); Mean Corp Hgb Conc 32.8 g/dL (32-36); Mean Corpuscular Hgb 30.4 pg (27.0-32.0); Mean Corpuscular Volume 92.6 fL (81-99); Mean Platelet Vol. 10.8 fl (6.2-12.0); Monocyte# 0.41 X10^3/uL; Monocyte% 6.6 % (0-10); NRBC Flagged by Analyzer 0 % (0-5); Neutrophil # 3.18 X10^3/uL (2.7-7.7); Neutrophil % 51.1 % (47-70); Platelet Count 278 K/mm3 (150-450); RBC Distribution Width CV 11.9 % (11.6-14.6); RBC Distribution Width SD 41.1 fl (35.1-43.9); Red Blood Count 5.14 M/mm3 (4.2-5.4); White Blood Count 6.2 K/mm3 (4.4-11.0)
[2021-07-31 12:29] LABS: Vitamin D,25 Hydroxy 20.3 ng/mL
[2021-07-31 12:42] LABS: ALB/GLOB Ratio 0.9 RATIO (0.9-2.4); AST(SGOT) 15 U/L (15-37); Alanine Aminotransfer ALT/SGPT 30 U/L (13-56); Albumin, Serum 3.5 g/dL (3.2-5.0); Alkaline Phosphatase 94 U/L (45-117); Anion Gap 2 (5-15); BUN 13 mg/dL (7-18); Calcium,Total 8.4 mg/dL (8.5-10.1); Chloride 107 mmol/L (98-107); Cholesterol 171 mg/dL (200); Creatinine, Serum 0.56 mg/dL (0.55-1.02); EST Glomerular Filtration Rate 121 mL/min (>60); Est Glom Filt Rate - Afr Amer 146 mL/min (>60); Globulin 3.8 g/dL (2.2-4.2); Glucose 94 mg/dL (74-106); High Density Lipoprotein 38 mg/dL; Potassium 4.5 mmol/L (3.5-5.1); Protein, Total 7.3 g/dL (6.4-8.2); Sodium Level 137 mmol/L (136-145); Thyroid Stim Hormone (TSH) 0.96 uIU/mL (0.358-3.74); Triglycerides 105 mg/dL; Very Low Density Lipoprotein 21 mg/dL (5-40)
== END 2021-07-31 23:59 | disposition home or self-care (01) ==
LOC: BIMLAB 09:49
PROVIDERS: PCP Internal Medicine; Referring Provider Physician Assistant; Visit Provider Physician Assistant
DX: F41.9 Anxiety disorder, unspecified (principal); J44.9 Chronic obstructive pulmonary disease, unspecified; E66.01 Morbid (severe) obesity due to excess calories; F32.9 Major depressive disorder, single episode, unspecified; G47.33 Obstructive sleep apnea (adult) (pediatric); I10 Essential (primary) hypertension; E55.9 Vitamin D deficiency, unspecified; Z72.0 Tobacco use; Z13.29 Encounter for screening for other suspected endocrine disorder
CPT/HCPCS: 36415; 80053; 80061; 82306; 84443; 85025

== ENCOUNTER → 2021-12-05 | Outpatient (CLI) | payer OTHER, SELFPAY ==
--- NOTE | 2021-12-05 12:36 | ECHOCS_ITS ---
Reason For Study: PHTN Procedure This was a 2D Doppler, Color Flow transthoracic echocardiogram. The study was technically difficult. Contrast injection was performed. Exam performed in department. Left Ventricle Based upon the 2D echocardiographic and contrast enhanced images obtained there appears to be grossly normal left ventricular size, wall motion, and systolic function. The estimated ejection fraction is 60 %. Diastolic function is indeterminate. Right Ventricle Normal RV size. Normal systolic function. Atria Normal left atrium. Normal right atrium. No doppler evidence for ASD. Mitral Valve There is no mitral annular calcification. Normal mitral valve. Trivial mitral valve insufficiency. Tricuspid Valve Normal tricuspid valve. Trivial tricuspid valve insufficiency. Right ventricular systolic pressure estimated to be 39 mmHg. Aortic Valve The aortic valve is not well visualized. Pulmonic Valve The pulmonic valve is not well visualized. Great Vessels Normal sized aortic root. Pericardium/Pleural No pericardial effusion. Medication 20 gauge I.V. with prn adaptor inserted into right arm. Diluted definity 2ml given slow IV push to enhance endocardial definition. MMode/2D Measurements & Calculations LVIDd: 3.4 cm IVSd: 0.87 cm Ao root diam: 3.3 cm LVIDs: 2.4 cm LVPWd: 0.94 cm LA dimension: 3.2 cm RVDd: 3.6 cm FS: 29.8 % LAV(MOD-bp): 47.9 ml LVAd ap4: 31.4 cm2 SV(MOD-sp4): 58.0 ml LAV(MOD-bp) Indexed: 21.4 ml/m2 LVLd ap4: 8.0 cm LAV(MOD-sp2): 47.9 ml EDV(MOD-sp4): 100.2 ml LAV(MOD-sp4): 38.1 ml EDV(sp4-el): 104.7 ml LVAs ap4: 18.6 cm2 LVLs ap4: 6.5 cm ESV(MOD-sp4): 42.3 ml ESV(sp4-el): 44.9 ml EF(MOD-sp4): 57.8 % EF(sp4-el): 57.1 % SV(sp4-el): 59.8 ml LA A4 area: 15.0 cm2 RA A4 area: 11.7 cm2 Time Measurements MV dec time: 0.19 sec Doppler Measurements & Calculations MV E max patricia: 65.7 cm/sec MV V2 max: 98.6 cm/sec MV P1/2t max patricia: 79.4 cm/sec MV A max patricia: 81.5 cm/sec MV max P.9 mmHg MV P1/2t: 65.1 msec MV E/A: 0.81 MV V2 mean: 56.7 cm/sec MV dec slope: 357.3 cm/sec2 MV mean P.5 mmHg MVA(P1/2t): 3.4 cm2 MV V2 VTI: 24.2 cm Ao V2 max: 131.9 cm/sec LV V1 max: 124.1 cm/sec PA V2 max: 67.4 cm/sec Ao max P.0 mmHg LV V1 max P.2 mmHg LV V1 mean P.4 mmHg LV V1 mean: 86.8 cm/sec LV V1 VTI: 28.9 cm TR max patricia: 300.5 cm/sec TR max P.1 mmHg ECHO/Echo Complete W/ Contrast Interpretation Summary The study was technically difficult. Contrast injection was performed. Based upon the 2D echocardiographic and contrast enhanced images obtained there appears to be grossly normal left ventricular size, wall motion, and systolic function. The estimated ejection fraction is 60 %. Trivial mitral valve insufficiency. Trivial tricuspid valve insufficiency. Right ventricular systolic pressure estimated to be 39 mmHg. Diastolic function is indeterminate. Ordering Physician: Hernán Mae Referring Physician: Huey Hoff Performed By: Karlo Mendez RCS
== END | disposition home or self-care (01) ==
LOC: CVS 12:35
PROVIDERS: PCP Internal Medicine; Referring Provider Internal Medicine Critical Care Medicine; Visit Provider Internal Medicine Critical Care Medicine
DX: J44.9 Chronic obstructive pulmonary disease, unspecified (principal); I27.20 Pulmonary hypertension, unspecified
CPT/HCPCS: 93306; Q9957; A4216; C8929

== ENCOUNTER 2021-12-09 07:21 | Day surgery (SDC) | payer OTHER, SELFPAY ==
[2021-12-09] MEDS: Lactated Ringers 1,000 ML 15 ML IV (07:40)
[2021-12-09 07:51] VITALS: BP 135/96; PULSE 79; RESP 18; TEMP 36.4; O2SAT 97; BMI 38.3
--- NOTE | 2021-12-09 08:30 | COLBX_PTH ---
PATIENT: FORREST NORIEGA V LOC: EN U#:[id number] AGE/SX: 51/F ROOM: RE12/09/[address]: Dr. Zafar Hoyos MD : 1970 BED: DIS: 12/09/2021 SPEC #: [id number] RECD: 12/09/21 11:29 STATUS: RIVERA LIANGShay #: [id number] JOON: 12/09/21 08:[address]: Zafar Hoyos DEPT: SURGICAL PATHOLOGY RECD BY: Radha Norton ENTERED: 12/09/21 11:46 SP TYPE: COLON BX OTHR DR: Dr. Huey Hoff MD Tissues: Rectum, NOS Procedures: Surgery Specimen Level IV HEADER OPERATION: Colonoscopy, open access (MAC) PRE-OP DIAGNOSIS: Encounter for screening for malignant neoplasm of colon TISSUE SUBMITTED: Rectal polyp MICROSCOPIC DIAGNOSIS Rectal polyp, biopsy: Hyperplastic polyp. 12/10/21 MICROSCOPIC DESCRIPTION Slides are reviewed. GROSS DESCRIPTION Received is one container labeled with the patient name and designated recal polyp. The specimen consists of two irregular fragments of light li soft tissue that measures 0.8 x 0.4 x 0.3 cm. The specimen is totally submitted in one cassette. /SJ:cc 12/09/21 TC:1 CPT:08419
--- NOTE | 2021-12-09 08:57 | HP.PCM_ITS ---
HPI - General HPI Narrative FORREST NORIEGA, is a 51 F who presents for screening colonoscopy. She denies any abdominal pain or blood in the stool. She has no family history of colon cancer. She is never had a colonoscopy in the past. [facility] Medical History Anxiety Arthritis Asthma Asthma Back pain Cardiology follow-up encounter Chronic cough Chronic low back pain COPD (chronic obstructive pulmonary disease) CPAP (continuous positive airway pressure) dependence Depression Gastric reflux History of echocardiogram History of edema History of pain when walking History of polycystic ovaries Hypertension Migraine headache Migraines Normal stress echocardiogram Restless legs Seasonal allergies Shingles Shortness of breath on exertion Sleep apnea Smoker Wears glasses Home Medications meloxicam 15 mg tablet 15 mg PO DAILY 09/16/18 [History Last Taken Unknown] albuterol sulfate 2.5 mg/3 mL (0.083 %) solution for nebulization 1.25 mg (1.5 mL) inhalation Q4H PRN PRN Sob &/Or Wheezing #180 mL 08/04/19 [Rx Last Taken 05/14/20] cetirizine 10 mg capsule 10 mg PO HS #30 caps 08/04/19 [Rx Last Taken Unknown] meclizine 25 mg chewable tablet (Travel Sickness (meclizine)) See Rx Inst ructions .Route .COMPLEX #30 tabs 09/14/19 [Rx Last Taken Unknown] valacyclovir 1 gram tablet See Rx Instructions .Route .COMPLEX #30 tabs 09/14/19 [Rx Last Taken Unknown] compress.stocking,knee,reg,lrg #2 ea 02/19/20 [Rx Last Taken Unknown] tizanidine 4 mg tablet 4 mg PO BID PRN MUSCLE SPASMS 02/19/20 [History Last Taken Unknown] fluticasone propionate 50 mcg/actuation nasal spray,suspension 2 spray intranasal DAILY #16 grams 02/22/20 [Rx Last Taken Unknown] hydrocodone-acetaminophen 5-325mg 5mg-325mg 1 tab PO BID 04/29/20 [History Last Taken 12/09/21] propranolol 60 mg capsule,24 hr,extended release 60 mg PO QHS #90 caps 01/08/21 [Rx Last Taken Unknown] ondansetron HCl 4 mg tablet (Zofran) 4 mg PO BID-TID PRN nausea and vomiting #60 tabs 02/05/21 [Rx Last Taken Unknown] hydroxyzine HCl 25 mg tablet See Rx Instructions .Route .COMPLEX #30 tabs 05/01/21 [Rx Last Taken Unknown] venlafaxine 100 mg tablet See Rx Instructions .Route .COMPLEX #60 tabs 05/01/21 [Rx Last Taken Unknown] multivitamin 1 tab PO DAILY #90 tabs 07/08/21 [Rx Last Taken Unknown] esomeprazole magnesium 40 mg capsule,delayed release 40 mg PO DAILY #90 caps 07/31/21 [Rx Last Taken Unknown] hydrochlorothiazide 25 mg tablet 25 mg PO DAILY diuretic #90 tabs 07/31/21 [Rx Last Taken Unknown] hydrocortisone 2.5 % topical cream 1 applic topical BID PRN skin irritation #30 grams 07/31/21 [Rx Last Taken Unknown] buspirone 10 mg tablet 10 mg PO BID #180 tabs 08/04/21 [Rx Last Taken Unknown] albuterol sulfate 90 mcg/actuation aerosol inhaler 2 puff inhalation Q6H COPD #8.5 grams 11/19/21 [Rx Last Taken Unknown] fluticasone fur. 100 mcg-umeclid 62.5 mcg-vilant 25 mcg inhalat.powder (Trelegy Ellipta) 1 inh inhalation DAILY #60 ea 11/19/21 [Rx Last Taken 12/09/21] Allergy/AdvReac Type Severity Reaction Status Date / Time cephalexin monohydrate Allergy Anaphylaxis Verified 12/09/21 07:50 [From Keflex] ciprofloxacin Allergy Rash Verified 12/09/21 07:50 clarithromycin [From Biaxin] Allergy Anaphylaxis Verified 12/09/21 07:50 Penicillins Allergy Anaphylaxis Verified 12/09/21 07:50 aspirin AdvReac Nausea Verified 12/09/21 07:50 Family History Mother Myocardial infarction Heart disease CVA (cerebral vascular accident) Hypertension Diabetes Sister Uterine cancer Other Alcoholism Anxiety and depression Hyperlipemia Seizures Surgical History (Updated 12/08/21 @ 11:04 by Debbie Swenson) bladder sling H/O right inguinal hernia repair H/O: hysterectomy History of adenoidectomy History of appendectomy History of bladder repair surgery History of carpal tunnel surgery of right wrist History of hernia repair History of hysterectomy History of removal of cyst History of tubal ligation S/P endometrial ablation S/P removal of left ovary Social History Smoking Status: Current every day smoker tobacco type: cigarettes Tobacco: How many years used: 31 alcohol intake: never substance use type: does not use what type of physical activity do you participate in: none Past Medical/Surgical History Planned Operation Planned Operative Procedure/s: COLONOSCOPY S.O.S: No Previous Hospitalizations/Surgeries HX Hospitalizations: No HX of Surgeries: BLADDER SLING R ING HERNIA HYSTERECTOMY ADENOIDS APPENDECTOMY BLADDER REPAIR SURGERY HERNIA REMOVAL CYST-BOTTOM OF FOOT TUBAL ENDOMETRIAL ABLATION REMOVAL L OVARY L ARM OLNAR NERVE TRANSPOSITION Any Problems With Anesthesia: No You/Your Family Experience Fever (Hyperthermia) With Anes: No Cholinesterase deficiency: No Cardiovascular Hx Chest Pain within Last 2 months: No Hx of Irregular Heartbeat and/or Afib: No Hx Heart Attack: No Hx Congestive Heart Failure: No Hx Hypertension: Yes (ON MED, CONTROLLED) Hx Internal Defibrillator: No Hx Pacemaker: No Hx Cardiac Catheterization: No Hx Cardiac Surgery/Stents/Etc.: No Hx Stress Test: Yes ([facility] 2016, ECHO 2016 [facility]) Hx Pain in Legs when Walking/Leg Cramps: Yes Respiratory Chronic Cough: Yes HX of Shortness of Breath: Yes Hoarseness: Yes Hx Chronic Obstructive Pulmonary Disease (COPD): Yes Hx Asthma: Yes Hx Emphysema: Yes Hx Sleep Apnea: Yes (DOESN'T WEAR) CPAP: Yes BIPAP: No Hx Respiratory Tract Infection/Cold (presently): No Result (for STOP score): Positive Hx Smoking: Yes Smoking Status: Current every day smoker Gastrointestinal Hx Gastroesophageal Reflux: Yes Controlled With Meds: Yes (ON OMEPRAZOLE) Hx Gastrointestinal Disorders: No Hx Gastrointestinal Bleed: No Hx Ulcer: No Hx Hiatal Hernia: No Difficulty Chewing/Swallowing: No Special diet followed at home: No Hx Unplanned Weight Loss of 20#: No HX Unplanned Weight Gain of 20#: No Neurological Hx Seizures: No HX Syncope/Blackout Spells/Unconsciousness: No Hx Transient Ischemic Attacks (TIA): No Hx Multiple Sclerosis: No Hx Parkinson's Disease: No Hx Head/Neck Injury: No Hx Headaches: Yes (MIGRAINES) Hx Back Injury/Pain: Yes (PAIN MGMT) Recent Onset of Speech Difficulty: No Restless Legs: Yes Does patient have nerve stimulator: No Blood Disorder Hx Leukemia: No Bleeding Tendencies: No Hx Deep Vein Thrombosis: No Hx High Cholesterol: Yes Blood Transmitted Disease: No Hx Hepatitis: No Hx Cirrhosis: No Hx Anemia: No Hx Blood Disorders: No Reproduction Is Patient Lactating: No Hx Hysterectomy: Yes Hx Tubal Ligation: Yes Are You Post Menopause: Yes Genitourinary Hx Renal Disease: No Hx Dialysis: No Musculoskeletal Hx Arthritis: Yes Hx Rheumatoid Arthritis: No Endocrine Hx Diabetes: No Thyroid Disease: No Hx Steroid Therapy: Yes (PAIN FREDERIC. INJ) Psycho/Social Hx Substance Use: No Hx Alcohol Use: No Hx Anxiety: Yes Hx Depression: Yes Mental Illness: No Hx Dementia: No Miscellaneous Hx Cancer: No Recent Exposure to Contagious Disease: No Hx of C-Diff: No Any Loose Teeth: No Allergies cephalexin monohydrate [From Keflex] Allergy (Verified 12/09/21 07:50) Anaphylaxis ciprofloxacin Allergy (Verified 12/09/21 07:50) Rash clarithromycin [From Biaxin] Allergy (Verified 12/09/21 07:50) Anaphylaxis Penicillins Allergy (Verified 12/09/21 07:50) Anaphylaxis aspirin Adverse Reaction (Verified 12/09/21 07:50) Nausea Maternal: Family History Mother Myocardial infarction Heart disease CVA (cerebral vascular accident) Hypertension Diabetes Sister Uterine cancer Other Alcoholism Anxiety and depression Hyperlipemia Seizures Diabetes, High Cholesterol, Heart Disease, Hypertension and Stroke Paternal: Family History Mother Myocardial infarction Heart disease CVA (cerebral vascular accident) Hypertension Diabetes Sister Uterine cancer Other Alcoholism Anxiety and depression Hyperlipemia Seizures - Discharge Is Pt Admitted From a Halfway, or a Skilled Nursing: No After D/C, Where Do you Plan to Go: Return Home Vital Signs Vital Signs Vital Signs: 12/09/21 07:51 12/09/21 07:51 Temperature 97.6 F L Temperature Source Temporal Pulse Rate 79 Respiratory Rate 18 Respiratory Pattern Normal Blood Pressure 135/96 H Blood Pressure Mean 109 Blood Pressure Source Monitor Blood Pressure Position Semi-Fowlers Blood Pressure Location Left Arm Pulse Ox 97 Oxygen Delivery Method Room Air Weight Weight: 244 lb 11.41 oz Body Mass Index (BMI) 38.3 Physical Exam Const alert and oriented x3 Resp normal respiratory effort and normal air movement Cardio regular rate and regular rhythm GI soft to palpation, non-tender and non-distended Assessment & Plan Assessment/Plan (1) Encounter for screening for malignant neoplasm of colon: PLAN: I explained endoscopy in detail to the patient. I explained the risks including but not limited to stroke or heart attack with anesthesia, perforation of the GI tract, bleeding, infection. I explained that any of these could necessitate further emergency surgery. The patient understands and all questions were answered sufficiently. The patient wishes to proceed with procedure. Zafar Hoyos MD Pager: [facility] [address] [place] [address], [address] [place] [address] Office: Surgery Risks - Colonoscopy Risks Include but are not Limited To: Risks include but are not limited to: Bleeding, perforation requiring further surgery, inability to complete colonoscopy requiring barium enema.
--- NOTE | 2021-12-09 09:22 | OP.COLON_ITS ---
Patient Name: Martha Rabago Procedure Date: 12/09/2021 8:54 AM Date of : 1970 Age: 51 Procedure: Colonoscopy Indications: Screening for colorectal malignant neoplasm Providers: Zafar Hoyos MD Medicines: Monitored Anesthesia Care Patient Profile: This is a 51 year old female. Refer to note in patient chart for documentation of history and physical. Last Colonoscopy: none. The patient's first colonoscopy is today. Complications: No immediate complications. Procedure: Pre-Anesthesia Assessment: - Prior to the procedure, a History and Physical was performed, and patient medications and allergies were reviewed. The patient's tolerance of previous anesthesia was also reviewed. The risks and benefits of the procedure and the sedation options and risks were discussed with the patient. All questions were answered, and informed consent was obtained. Prior Anticoagulants: The patient has taken no previous anticoagulant or antiplatelet agents. After reviewing the risks and benefits, the patient was deemed in satisfactory condition to undergo the procedure. After I obtained informed consent, the scope was passed under direct vision. Throughout the procedure, the patient's blood pressure, pulse, and oxygen saturations were monitored continuously. The colonoscope was introduced through the anus and advanced to the cecum, identified by appendiceal orifice and ileocecal valve. The colonoscopy was performed without difficulty. The patient tolerated the procedure well. The quality of the bowel preparation was good. Scope In: 9:03:19 AM Scope Withdrawal Time 0 hours 8 minutes 47 seconds Scope Out: 9:19:27 AM Total Procedure Duration Time 0 hours 16 minutes 8 seconds Findings: A polyp was found in the rectum. The polyp was removed with a hot snare. Resection and retrieval were complete. The entire examined colon appeared normal on direct and retroflexion views. Impression: - One polyp in the rectum, removed with a hot snare. Resected and retrieved. - The entire examined colon is normal on direct and retroflexion views. Recommendation: - Discharge patient to home. - Resume previous diet. - Continue present medications. - Await pathology results. - Repeat colonoscopy in 5 years for surveillance based on pathology results. Procedure Code(s): --- Professional --- 52808, 33, Colonoscopy, flexible; with removal of tumor(s), polyp(s), or other lesion(s) by snare technique Diagnosis Code(s): --- Professional --- Z12.11, Encounter for screening for malignant neoplasm of colon K62.1, Rectal polyp CPT copyright 2017 [employer]. All rights reserved. The codes documented in this report are preliminary and upon sewing machine mechanic review may be revised to meet current compliance requirements. Zafar Hoyos MD 12/09/2021 9:22:14 AM This report has been signed electronically. Number of Addenda: 0 Note Initiated On: 12/09/2021 8:54 AM
--- NOTE | 2021-12-09 09:23 | OP.CCLET_ITS ---
12/09/2021 Huey Hoff MD [address] [place] [address] [place] [address] Re : Colonoscopy procedure for Martha Rabago Dear Dr. Hoff This procedure was performed on Thursday, December 09, 2021. My impressions and recommendations are as follows: Impressions : - One polyp in the rectum, removed with a hot snare. Resected and retrieved. - The entire examined colon is normal on direct and retroflexion views. Recommendations : - Discharge patient to home. - Resume previous diet. - Continue present medications. - Await pathology results. - Repeat colonoscopy in 5 years for surveillance based on pathology results. My findings are described in the full procedure note, which is enclosed. If I can be of further assistance, please feel free to contact me at Doctor phone number(s): , Work: . Sincerely, Zafar Hoyos MD 12/09/2021 9:22:14 AM This report has been signed electronically.
[2021-12-09 09:25] VITALS: BP 135/96; BP 93/46; PULSE 65; RESP 16; TEMP 36.4; O2SAT 95
[2021-12-09 09:30] VITALS: BP 103/57; BP 135/96; PULSE 64; RESP 16; O2SAT 95
[2021-12-09 09:35] VITALS: BP 110/63; BP 135/96; PULSE 65; RESP 16; O2SAT 95
[2021-12-09 09:40] VITALS: BP 100/61; BP 135/96; PULSE 63; RESP 16; TEMP 36.2; O2SAT 98
[2021-12-09 10:14] VITALS: BP 135/96
== END 2021-12-09 10:14 | disposition home or self-care (01) ==
LOC: EN 07:22 → AC 07:24
PROVIDERS: PCP Internal Medicine; Referring Provider Internal Medicine; Visit Provider Surgery
PROC: 0DJD8ZZ Inspection of Lower Intestinal Tract, Via Natural or Artificial Opening Endoscopic (ICD-10-PCS; CPT 45378; principal; 2021-12-09 08:25)
DX: Z12.11 Encounter for screening for malignant neoplasm of colon (principal); J43.9 Emphysema, unspecified; I10 Essential (primary) hypertension; K62.1 Rectal polyp; F17.210 Nicotine dependence, cigarettes, uncomplicated; G47.33 Obstructive sleep apnea (adult) (pediatric); R06.00 Dyspnea, unspecified; F41.9 Anxiety disorder, unspecified; Z79.899 Other long term (current) drug therapy; F32.A Depression, unspecified; K21.9 Gastro-esophageal reflux disease without esophagitis
CPT/HCPCS: 45385; 88305; J7120; J2405

== ENCOUNTER → 2021-12-25 | Outpatient (CLI) | payer OTHER, SELFPAY ==
--- NOTE | 2021-12-25 14:44 | PFTCOMP ---
COMPLETE PULMONARY FUNCTION TEST INTERPRETATION Brief HPI: Patient is a 51-year-old female, currently under the care of myself, who presents to [facility] for complete pulmonary function tests secondary to diagnosis of COPD. Respiratory therapist reports good effort and reproducible results. Interpretation: Forced expiration spirometry shows a severe large airways obstructive ventilatory defect with an FEV1 of 49% predicted. There is a significant bronchodilator response in FVC and FEV1 by strict ATS criteria. Spirograms are of good quality and plateau slowly, indicating slowly emptying areas of the lungs. The respiratory flow volume loop shows decreased expiratory flow rates at all lung volumes consistent with airway obstruction. Lung volumes by body plethysmography show an elevated total lung capacity at 7.09 L, 123% predicted. FRC and RV are elevated out of proportion. Lung volume measurements are consistent with hyperinflation and air-trapping. Diffusion capacity by carbon monoxide is decreased at 66% predicted. The airway resistance is elevated. Compared to previous pulmonary function tests from 08/15/2019, there is been a significant improvement in FEV1, but also worsening in air trapping with hyperinflation. Impression: Partially reversible severe large airways obstructive ventilatory defect, resulting in air trapping with hyperinflation, and a symmetric reduction diffusing capacity.
== END | disposition home or self-care (01) ==
LOC: PSN 10:01
PROVIDERS: PCP Internal Medicine; Referring Provider Internal Medicine Critical Care Medicine; Visit Provider Internal Medicine Critical Care Medicine
DX: J44.9 Chronic obstructive pulmonary disease, unspecified (principal)
CPT/HCPCS: 94060; 94726; 94729

== ENCOUNTER → 2021-12-26 | Outpatient (CLI) | payer OTHER, SELFPAY ==
[2021-12-26 07:18] VITALS: PULSE 82; PULSE 83; PULSE 93; PULSE 94; PULSE 95; PULSE 96; O2SAT 92; O2SAT 93; O2SAT 94; O2SAT 95
--- NOTE | 2021-12-26 12:38 | PCM.PSN.6M ---
PSN 6 Minute Walk Test 6 Minute Walk Test 6 Minute Walk Test: 6 Minute Walk Test PSN:6-Minute Walk Test Start: 12/26/21 07:18 Freq: Status: Active Protocol: RESP.6MINW Document 12/26/21 07:18 STEPHANE (Rec: 12/26/21 07:20 STEPHANE [id number]) 6 Minute Walk Test Date Performed 12/26/21 Time Performed 07:00 Height 5 ft 8 in Weight: 110.677 kg Weight in Pounds 244.[address]: Hernán Mae Assistive device used: None Pre-test Oxygen Delivery Method Room Air Pulse Ox (%) 93 Pulse Rate (60-100 beats/min) 82 Dyspnea Dez Scale (0-10) 0 Exertion Dez Scale (6-20) 6 1st minute Oxygen Delivery Method Room Air Pulse Ox (%) 92 Pulse Rate (60-100 beats/min) 95 2nd minute Oxygen Delivery Method Room Air Pulse Ox (%) 93 Pulse Rate (60-100 beats/min) 96 3rd minute Oxygen Delivery Method Room Air Pulse Ox (%) 93 Pulse Rate (60-100 beats/min) 93 4th minute Oxygen Delivery Method Room Air Pulse Ox (%) 92 Pulse Rate (60-100 beats/min) 94 5th minute Oxygen Delivery Method Room Air Pulse Ox (%) 93 Pulse Rate (60-100 beats/min) 93 6th minute Oxygen Delivery Method Room Air Pulse Ox (%) 94 Pulse Rate (60-100 beats/min) 93 Dyspnea Dez Scale (0-10) 2 Exertion Dez Scale (6-20) 13 Post-test Oxygen Delivery Method Room Air Pulse Ox (%) 95 Pulse Rate (60-100 beats/min) 83 Full Laps Walked 16 Partial Lap, Number of Tiles Walked 44 Total Distance Walked (ft) 988 Interpretation Interpretation: The patient was noted to have a lower baseline saturation of 93% at rest. However, patient did not experience any significant tachycardia or hypoxia during ambulation. In total, the patient was able to travel 988 feet over the course of 6 minutes on room air with no assistive devices or breaks. Recommendations Recommendations: No supplemental oxygen is indicated at this time. However, patient will need to be followed closely given level of desaturation.
== END | disposition home or self-care (01) ==
LOC: PSN 06:58
PROVIDERS: PCP Internal Medicine; Referring Provider Internal Medicine Critical Care Medicine; Visit Provider Internal Medicine Critical Care Medicine
DX: J44.9 Chronic obstructive pulmonary disease, unspecified (principal)
CPT/HCPCS: 94618

== ENCOUNTER → 2022-02-27 | Outpatient (CLI) | payer OTHER, SELFPAY ==
--- NOTE | 2022-02-27 12:50 | CT_ITS ---
STUDY: LOW DOSE CT LUNG CANCER SCREENING REASON FOR EXAM: Female, 51 years old. 19 pack-year smoking history. Asthma, COPD, emphysema. RADIATION DOSAGE (If Supplied By Facility): CTDIvol = ( 3.18 ) mGy, DLP = ( 109.60 ) mGycm TECHNIQUE: No contrast was administered. Low dose technique was utilized (average mAS-38 and kVp 120). 1.25 mm axial source images with a slice interval of 1.25-mm were reconstructed in lung windows. 2.5 mm axial source images with a slice interval of 2.5-mm were reconstructed in lung windows. 5.0 mm axial source images with a slice interval of 5.0-mm were reconstructed in soft tissue windows. COMPARISON: Chest, September 03, 2018. NODULES: Total lung nodules (excluding granulomas): 0 Emphysema: Emphysematous changes of lungs. Endobronchial lesion: None Aorta: Minimal atherosclerotic changes without aneurysm. CORONARY ARTERIES: Coronary artery calcification normal Heart: Normal Pulmonary artery: Normal Mediastinal nodes: Calcified subcarinal lymph nodes. Other chest and abdominal findings: Minimal degenerative changes of the thoracic spine. CT/Low Dose CT Lung Screening IMPRESSION: Lung-RADS category 1 - Continue annual screening with LDCT in 12 months. IMPORTANT NOTES FOR USE: ACR Lung-RADS Version 1.1 Assessment Categories Release Date: 2018 Category: Coded 0-4 bases on nodule(s) with highest degree of suspicion. Negative screen is defined as categories 1 and 2; a positive screen is defined as categories 3 and 4. Category 3 and 4A nodules that are unchanged on interval CT should be coded as category 2, and individuals returned to screening in 12 months. Category 4X: Category 3 or 4 nodules with additional imaging findings that increase the suspicion of lung cancer, such as spiculation, GGN that doubles in size in 1 year, enlarged lymph notes, etc. Category Modifiers: S (significant finding unrelated to lung cancer) Electronically Signed: Morgan Simpson DO at 18:51 EDT Reading Location ID and State: [facility] / [place] Tel [phone], Service support ,
== END | disposition home or self-care (01) ==
LOC: CT 12:49
PROVIDERS: PCP Internal Medicine; Referring Provider Nurse Practitioner Acute Care; Visit Provider Nurse Practitioner Acute Care
DX: F17.210 Nicotine dependence, cigarettes, uncomplicated (principal)
CPT/HCPCS: 71271

== ENCOUNTER 2022-03-17 14:15 | Outpatient (RCR) | payer OTHER, SELFPAY | END 2022-03-25 23:59 | LOC: PSN 14:15 | PROVIDERS: PCP Internal Medicine; Referring Provider Nurse Practitioner Acute Care; Visit Provider Nurse Practitioner Acute Care | DX: J44.9 Chronic obstructive pulmonary disease, unspecified (principal); F17.210 Nicotine dependence, cigarettes, uncomplicated | CPT/HCPCS: 99407 ==

== ENCOUNTER → 2022-05-28 | Outpatient (CLI) | payer OTHER, SELFPAY ==
[2022-05-28 18:46] LABS: Amphetamine Urine VISTA NEGATIVE (<1000 ng/mL); Barbiturate Urine VISTA NEGATIVE (< 200 ng/mL); Benzodiazepine Urine VISTA NEGATIVE (< 200 ng/mL); Cocaine Urine VISTA NEGATIVE (< 300 ng/mL); Ecstacy Urine VISTA NEGATIVE (< 500 ng/mL); Methadone Urine VISTA NEGATIVE (< 300 ng/mL); PCP Urine VISTA NEGATIVE (< 25 ng/mL); THC Urine VISTA NEGATIVE (< 50 ng/mL); Vista UDS pH Range 8
== END | disposition home or self-care (01) ==
LOC: LAB 16:34
PROVIDERS: PCP Internal Medicine; Visit Provider Anesthesiology Pain Medicine
DX: F11.20 Opioid dependence, uncomplicated (principal)
CPT/HCPCS: 80307

== ENCOUNTER → 2022-07-01 | Outpatient (CLI) | payer OTHER, SELFPAY ==
--- NOTE | 2022-07-01 09:45 | RAD_ITS ---
STUDY: X-RAY - CERVICAL SPINE REASON FOR EXAM: Female, 51 years old. Pain. TECHNIQUE: 2 view(s) of the cervical spine were obtained. COMPARISON: None FINDINGS: Osteopenia. Normal anterior atlantoaxial articulation. Normal odontoid process. Normal cervical lordosis. Diffuse uncovertebral and facet sclerosis. Mild intervertebral disc space narrowing at C3-4, C4-5 and C5-6 without osteophytes. Carotid calcification, right greater than left. RAD/Cerv Spine 2 or 3 Views IMPRESSION: Osteopenia with cervical spondylosis as described. No acute abnormality, evidence of erosive changes/fusion. Electronically Signed: Nas Martinez, at 15:36 EST ,
== END | disposition home or self-care (01) ==
LOC: RAD 09:40
PROVIDERS: PCP Internal Medicine; Visit Provider Anesthesiology Pain Medicine
DX: M47.812 Spondylosis without myelopathy or radiculopathy, cervical region (principal); M47.892 Other spondylosis, cervical region
CPT/HCPCS: 72040

== ENCOUNTER → 2022-09-10 | Outpatient (CLI) | payer OTHER, SELFPAY ==
[2022-09-10 15:54] LABS: Absolute Lymphocyte Count 2.57 X10^3/uL (0.83-4.51); Basophil# 0.03 X10^3/uL; Basophil% 0.3 % (0-1); Eosinophil# 0.06 X10^3/uL; Eosinophils% 0.6 % (0-5); Hematocrit 47.7 % (37-47); Hemoglobin 15.7 g/dL (12.0-15.0); Lymphocyte # 2.57 X10^3/ul (0.83-4.51); Lymphocyte % 27.7 % (19-41); Mean Corp Hgb Conc 32.9 g/dL (32-36); Mean Corpuscular Hgb 29.3 pg (27.0-32.0); Mean Platelet Vol. 10.6 fl (6.2-12.0); Monocyte# 0.61 X10^3/uL; Monocyte% 6.6 % (0-10); NRBC Flagged by Analyzer 0 % (0-5); Neutrophil # 5.98 X10^3/uL (2.7-7.7); Neutrophil % 64.6 % (47-70); Platelet Count 254 K/mm3 (150-450); RBC Distribution Width SD 42.3 fl (35.1-43.9); Red Blood Count 5.36 M/mm3 (4.2-5.4); White Blood Count 9.3 K/mm3 (4.4-11.0)
[2022-09-10 16:58] LABS: ALB/GLOB Ratio 0.9 RATIO (0.9-2.4); AST(SGOT) 19 U/L (15-37); Alanine Aminotransfer ALT/SGPT 20 U/L (13-56); Albumin, Serum 3.5 g/dL (3.2-5.0); Alkaline Phosphatase 96 U/L (45-117); Anion Gap 3 (5-15); BUN 12 mg/dL (7-18); BUN/Creat Ratio 22.1 RATIO (10-20); Calcium,Total 9.3 mg/dL (8.5-10.1); Chloride 105 mmol/L (98-107); Cholesterol 178 mg/dL (200); Creatinine, Serum 0.54 mg/dL (0.55-1.02); EST Glomerular Filtration Rate 125 mL/min (>60); Est Glom Filt Rate - Afr Amer 152 mL/min (>60); Globulin 4.1 g/dL (2.2-4.2); Glucose 83 mg/dL (74-106); High Density Lipoprotein 43 mg/dL; Potassium 4.5 mmol/L (3.5-5.1); Protein, Total 7.6 g/dL (6.4-8.2); Sodium Level 135 mmol/L (136-145); T4 Free Direct 1.09 ng/dL (0.76-1.46); Thyroid Stim Hormone (TSH) 0.85 uIU/mL (0.358-3.74); Triglycerides 124 mg/dL; Very Low Density Lipoprotein 25 mg/dL (5-40)
== END | disposition home or self-care (01) ==
LOC: BIMLAB 14:26
PROVIDERS: PCP Internal Medicine; Referring Provider Internal Medicine; Visit Provider Internal Medicine
DX: I10 Essential (primary) hypertension (principal); K59.09 Other constipation
CPT/HCPCS: 36415; 80053; 80061; 84439; 84443; 85025

== ENCOUNTER → 2022-12-16 | Outpatient (CLI) | payer OTHER, SELFPAY ==
[2022-12-16 12:59] LABS: Amphetamine Urine VISTA NEGATIVE (<1000 ng/mL); Barbiturate Urine VISTA NEGATIVE (< 200 ng/mL); Benzodiazepine Urine VISTA NEGATIVE (< 200 ng/mL); Cocaine Urine VISTA NEGATIVE (< 300 ng/mL); Ecstacy Urine VISTA NEGATIVE (< 500 ng/mL); Methadone Urine VISTA NEGATIVE (< 300 ng/mL); PCP Urine VISTA NEGATIVE (< 25 ng/mL); THC Urine VISTA NEGATIVE (< 50 ng/mL); Vista UDS pH Range 5
== END | disposition home or self-care (01) ==
LOC: LAB 11:15
PROVIDERS: PCP Internal Medicine; Referring Provider Anesthesiology Pain Medicine; Visit Provider Anesthesiology Pain Medicine
DX: F11.20 Opioid dependence, uncomplicated (principal)
CPT/HCPCS: 80307

== ENCOUNTER → 2023-04-17 | Outpatient (CLI) | payer BC, SELFPAY ==
--- NOTE | 2023-04-17 07:55 | CT_ITS ---
STUDY: LOW DOSE CT LUNG CANCER SCREENING REASON FOR EXAM: Female, 52 years old. NICOTINE DEPENDENCE RADIATION DOSAGE (If Supplied By Facility): CTDIvol = ( 4.02 ) mGy, DLP = ( 140.44 ) mGycm TECHNIQUE: No contrast was administered. Low dose technique was utilized (average mAS-38 and kVp 120). 1.25 mm axial source images with a slice interval of 1.25-mm were reconstructed in lung windows. 2.5 mm axial source images with a slice interval of 2.5-mm were reconstructed in lung windows. 5.0 mm axial source images with a slice interval of 5.0-mm were reconstructed in soft tissue windows. COMPARISON: 02/27/2022 Emphysema: Mild emphysema. No noncalcified nodule or mass. Endobronchial lesion: None Aorta: No aortic aneurysm. CORONARY ARTERIES: Coronary artery calcification is seen. Heart: No cardiomegaly. Pulmonary artery: Normal Mediastinal nodes: Normal Other chest and abdominal findings: None CT/Low Dose CT Lung Screening IMPRESSION: Lung-RADS category 1 - Continue annual screening with LDCT in 12 months. IMPORTANT NOTES FOR USE: ACR Lung-RADS Version 1.1 Assessment Categories Release Date: 2018 Category: Coded 0-4 bases on nodule(s) with highest degree of suspicion. Negative screen is defined as categories 1 and 2; a positive screen is defined as categories 3 and 4. Category 3 and 4A nodules that are unchanged on interval CT should be coded as category 2, and individuals returned to screening in 12 months. Category 4X: Category 3 or 4 nodules with additional imaging findings that increase the suspicion of lung cancer, such as spiculation, GGN that doubles in size in 1 year, enlarged lymph notes, etc. Category Modifiers: S (significant finding unrelated to lung cancer) Electronically Signed: Elver Khan MD at 21:24 EST ,
== END | disposition home or self-care (01) ==
PROVIDERS: PCP Internal Medicine; Referring Provider Nurse Practitioner Acute Care; Visit Provider Nurse Practitioner Acute Care
DX: F17.200 Nicotine dependence, unspecified, uncomplicated (principal)
CPT/HCPCS: 71271

== ENCOUNTER → 2023-06-24 | Outpatient (CLI) | payer BC, SELFPAY ==
--- NOTE | 2023-06-24 09:00 | RAD_ITS ---
EXAM: XR THORACIC SPINE, 3 VIEWS CLINICAL INDICATION: Other intervertebral disc degeneration, thoracic region TECHNIQUE: Frontal, lateral and swimmer''s views of the thoracic spine. COMPARISON: Lateral view of the chest March 25, 2022. FINDINGS: VERTEBRAE: Unremarkable. Preserved vertebral body height. No fracture. No spondylolisthesis. Preservation of the normal thoracic kyphosis. No significant facet arthropathy. DISC SPACES: Unremarkable. Disc spaces are maintained. RAD/Thoracic Spine 3 Views IMPRESSION: No evidence of thoracic spinal fracture or spondylolisthesis. Electronically Signed: Hayley Miles MD at 3:28 EST ,
== END | disposition home or self-care (01) ==
PROVIDERS: PCP Internal Medicine; Referring Provider Anesthesiology Pain Medicine; Visit Provider Anesthesiology Pain Medicine
DX: M51.34 Other intervertebral disc degeneration, thoracic region (principal)
CPT/HCPCS: 72072

== ENCOUNTER → 2023-08-09 | Outpatient (CLI) | payer BC, SELFPAY ==
--- NOTE | 2023-08-09 07:38 | MRI_ITS ---
STUDY: MRI CERVICAL SPINE WITHOUT CONTRAST REASON FOR EXAM: Female, 52 years old. Pain between shoulders. No arm pain/numbness. Radiculopathy. TECHNIQUE: Standardized fat and water weighted pulse sequences were obtained in the sagittal and axial planes. COMPARISON: Cervical spine radiographs 07/01/2022. FINDINGS: Normal foramen magnum and brainstem-cervical cord junction. Normal craniovertebral junction. Normal anterior atlantoaxial articulation. Normal odontoid process. Mild straightening of the C-spine curvature. Normal vertebral bodies and posterior osseous elements. C2-3: Normal endplates. Normal disc height, signal and morphology. Normal central canal and intervertebral neural foramina. C3-4: Normal endplates. Normal disc height, signal and morphology. Normal central canal and intervertebral neural foramina. C4-5: Normal endplates. Normal disc height, signal and morphology. Normal central canal and intervertebral neural foramina. C5-6: Normal endplates. Normal disc height, signal and morphology. Normal central canal and intervertebral neural foramina. C6-7: Normal endplates. Normal disc height, signal and morphology. Normal central canal and intervertebral neural foramina. C7-T1: Normal endplates. Normal disc height, signal and morphology. Normal central canal and intervertebral neural foramina. T1-T2, T2-3 and T3-T4: (Sagittal only). Normal endplates. Normal disc height, signal and morphology. Normal central canal and intervertebral neural foramina. Normal cervical cord. Normal upper thoracic spinal cord. Normal included portions of the midline brainstem and cerebellum. Normal included midline pituitary gland. Normal visualized soft tissue structures. MRI/Spine Cervical (Routine) IMPRESSION: 1. No MRI evidence of cervical extruded disc fragment, cervical disc protrusion, spinal stenosis or cervical nerve root displacement. 2. Normal cervical spinal cord. 3. Normal osseous elements and disc space heights of the cervical spine. Electronically Signed: Florencio Murillo MD at 8:48 EDT ,
== END | disposition home or self-care (01) ==
PROVIDERS: PCP Internal Medicine; Referring Provider Anesthesiology Pain Medicine; Visit Provider Anesthesiology Pain Medicine
DX: M54.12 Radiculopathy, cervical region (principal)
CPT/HCPCS: 72141

== ENCOUNTER → 2024-02-09 | Outpatient (CLI) | payer BC, SELFPAY ==
[2024-02-09 18:19] LABS: Amphetamine Urine VISTA NEGATIVE (<1000 ng/mL); Barbiturate Urine VISTA NEGATIVE (< 200 ng/mL); Benzodiazepine Urine VISTA NEGATIVE (< 200 ng/mL); Cocaine Urine VISTA NEGATIVE (< 300 ng/mL); Ecstacy Urine VISTA NEGATIVE (< 500 ng/mL); Methadone Urine VISTA NEGATIVE (< 300 ng/mL); PCP Urine VISTA NEGATIVE (< 25 ng/mL); THC Urine VISTA NEGATIVE (< 50 ng/mL); Vista UDS pH Range 6
== END | disposition home or self-care (01) ==
LOC: LAB 17:20
PROVIDERS: PCP Internal Medicine; Referring Provider Anesthesiology Pain Medicine; Visit Provider Anesthesiology Pain Medicine
DX: F11.20 Opioid dependence, uncomplicated (principal)
CPT/HCPCS: 80307

== ENCOUNTER → 2024-03-10 | Outpatient (CLI) | payer BC, SELFPAY ==
--- NOTE | 2024-03-10 16:45 | MRI_ITS ---
STUDY: MRI LUMBAR SPINE WITHOUT CONTRAST REASON FOR EXAM: Female, 53 years old. Continuous low back pain and leg pain/radiculopathy. TECHNIQUE: Standardized fat and water weighted pulse sequences were obtained in the sagittal and axial planes. COMPARISON: MRI lumbar spine without contrast 02/10/2018. FINDINGS: T11-T12 and T12-L1: (Sagittal only). Normal endplates. Normal disc height, hydration and morphology. No ventral extradural defects. Normal central canal and bilateral intervertebral neural foramina. Normal lumbar lordosis. There is no substantial scoliosis. Normal conus medullaris that terminates at the upper L1 vertebral body level. L1-2: Normal endplates. Normal disc height, hydration and morphology. Normal bilateral facet joints. Normal central canal and bilateral lateral recesses. Normal bilateral intervertebral neural foramina. L2-3: Normal endplates. Normal disc height, hydration and morphology. Normal bilateral facet joints. Normal central canal and bilateral lateral recesses. Normal bilateral intervertebral neural foramina. L3-4: Normal endplates. Normal disc height, hydration and morphology. Normal bilateral facet joints. Normal central canal and bilateral lateral recesses. Normal bilateral intervertebral neural foramina. L4-5: Normal endplates. Minimal disc space height narrowing. Minimal ventral extradural defect due to posterior bulging annulus is a new finding. Small T2 hyperintensity underneath the posterior bulging annulus may represent annular fissure. This was present previously. This may represent annular fissure. Normal facet joints. Mild to moderate central canal stenosis with an AP canal diameter of 8 mm, previously 10 mm. Normal bilateral lateral recesses. Normal bilateral intervertebral neuroforamina. L5-S1: Moderate type II degenerative vertebral marrow fat infiltration underneath the peripheral aspects of the vertebral endplates. More pronounced disc space height narrowing. No significant facet arthropathy. Mild dorsal epidural lipomatosis. Mild central canal stenosis with an AP canal diameter of 10 mm is unchanged. Normal bilateral lateral recesses. Moderate stenosis of the right intervertebral neuroforamen is unchanged. Mild stenosis of the left intervertebral neuroforamen is unchanged. Normal visualized sacral ala. Normal visualized paraspinous soft tissue structures. MRI/Spine Lumbar (Routine) IMPRESSION: 1. Mild to moderate central canal stenosis at L4-L5 disc space level with an AP canal diameter of 8 mm, previously 10 mm. This is secondary to small posterior bulging annulus. Small T2 hyperintensity underneath the posterior bulging annulus may represent annular fissure. This was present previously and is unchanged. 2. Mild central canal stenosis at L5-S1 disc space level with an AP canal diameter 7 mm is unchanged. Moderate stenosis of right intervertebral neuroforamen and mild stenosis of the left intervertebral neuroforamen are unchanged. Modic type II changes of the vertebral marrow underneath the vertebral endplates are new findings. 3. No MRI evidence of lumbar extruded disc fragment. 4. No other additional findings or changes. Electronically Signed: Florencio Murillo MD at 16:10 EST ,
== END | disposition home or self-care (01) ==
PROVIDERS: PCP Internal Medicine; Referring Provider Anesthesiology Pain Medicine; Visit Provider Anesthesiology Pain Medicine
DX: M54.16 Radiculopathy, lumbar region (principal)
CPT/HCPCS: 72148

== ENCOUNTER → 2024-03-13 | Outpatient (CLI) | payer BC, SELFPAY ==
[2024-03-13 16:34] LABS: Absolute Lymphocyte Count 3.34 X10^3/uL (0.83-4.51); Absolute Neutrophil Count 3.6 X10^3/uL (2.0-7.7); Basophil# 0.02 X10^3/uL; Basophil% 0.3 % (0-1); Eosinophil# 0.12 X10^3/uL; Eosinophils% 1.6 % (0-5); Hematocrit 43.3 % (37-47); Hemoglobin 14.4 g/dL (12.0-15.0); Lymphocyte # 3.34 X10^3/ul (0.83-4.51); Lymphocyte % 43.9 % (19-41); Mean Corp Hgb Conc 33.3 g/dL (32-36); Mean Corpuscular Hgb 30.3 pg (27.0-32.0); Mean Platelet Vol. 10.4 fl (6.2-12.0); Monocyte# 0.48 X10^3/uL; Monocyte% 6.3 % (0-10); NRBC Flagged by Analyzer 0 % (0-5); Neutrophil # 3.63 X10^3/uL (2.7-7.7); Neutrophil % 47.8 % (47-70); Platelet Count 252 K/mm3 (150-450); RBC Distribution Width CV 12.3 % (11.6-14.6); RBC Distribution Width SD 41.1 fl (35.1-43.9); Red Blood Count 4.76 M/mm3 (4.2-5.4); White Blood Count 7.6 K/mm3 (4.4-11.0)
[2024-03-13 16:59] LABS: ALB/GLOB Ratio 1.1 RATIO (0.9-2.4); AST(SGOT) 14 U/L (15-37); Alanine Aminotransfer ALT/SGPT 28 U/L (13-56); Albumin, Serum 3.6 g/dL (3.2-5.0); Alkaline Phosphatase 79 U/L (45-117); Anion Gap 6 (5-15); BUN 10 mg/dL (7-18); BUN/Creat Ratio 19.3 RATIO (10-20); Calcium,Total 8.7 mg/dL (8.5-10.1); Chloride 106 mmol/L (98-107); Cholesterol 179 mg/dL (200); Creatinine, Serum 0.52 mg/dL (0.55-1.02); EST Glomerular Filtration Rate 132 mL/min (>60); Est Glom Filt Rate - Afr Amer 160 mL/min (>60); Globulin 3.2 g/dL (2.2-4.2); Glucose 93 mg/dL (74-106); High Density Lipoprotein 45 mg/dL; Protein, Total 6.8 g/dL (6.4-8.2); Sodium Level 138 mmol/L (136-145); Triglycerides 88 mg/dL; Very Low Density Lipoprotein 18 mg/dL (5-40)
== END | disposition home or self-care (01) ==
LOC: BIMLAB 15:43
PROVIDERS: PCP Internal Medicine; Visit Provider Internal Medicine
DX: I10 Essential (primary) hypertension (principal); F41.9 Anxiety disorder, unspecified; F32.9 Major depressive disorder, single episode, unspecified
CPT/HCPCS: 36415; 80053; 80061; 85025

== ENCOUNTER → 2024-07-25 | Outpatient (CLI) | payer BC, SELFPAY | END | disposition home or self-care (01) | LOC: PSN 08:08 | PROVIDERS: PCP Internal Medicine; Referring Provider Nurse Practitioner Acute Care; Visit Provider Nurse Practitioner Acute Care | DX: J44.9 Chronic obstructive pulmonary disease, unspecified (principal) | CPT/HCPCS: 94060; 94726; 94729 ==

== ENCOUNTER → 2024-07-26 | Outpatient (CLI) | payer BC, SELFPAY ==
--- NOTE | 2024-07-26 10:03 | CT_ITS ---
PROCEDURE: LOW DOSE CT LUNG SCREENING 07/26/2024 REASON FOR EXAM: SMOKER Current smoker. 3 packs per day for many years. History of COPD/asthma/emphysema. TECHNIQUE: Low Dose CT Lung screening without contrast. Coronal and Sagittal reconstruction series were provided. One or more dose reduction techniques were used (e.g., Automated exposure control, adjustment of the mA and/or kV according to patient size, use of iterative reconstruction technique). REFERENCE LINK: [facility] Lung-RADS RADIATION DOSE SUMMARY: CTDlvol: 3.18 mGy DLP: 110.40 mGycm COMPARISON: Comparison is made with prior study dated April 17, 2023. FINDINGS: PULMONARY NODULES: (Only nodules >3mm are reported) Nodules described below are on series 1 unless otherwise specified. Pulmonary Nodules: No suspicious nodules. Hardware:None Lymph Nodes:Benign granulomatous calcifications. Heart and Vasculature:Coronary artery calcifications are noted. Coronary Artery Calcifications: Present Lungs and Airways: Mild emphysematous changes are present. Pleura:Unremarkable Upper Abdomen:Unremarkable Bones:Degenerative changes of the thoracic spine. CT/Low Dose CT Lung Screening IMPRESSION: Stable examination. Coronary artery calcification (CAC) is is present Lung-RADS Category: 2 BENIGN (BASED ON IMAGING FEATURES OR INDOLENT BEHAVIOR). RECOMMEND 12-MONTH SCREENING LDCT. Other Significant Findings: None. Reading Location: [place] [id number]
== END | disposition home or self-care (01) ==
PROVIDERS: PCP Internal Medicine; Referring Provider Nurse Practitioner Acute Care; Visit Provider Nurse Practitioner Acute Care
DX: F17.210 Nicotine dependence, cigarettes, uncomplicated (principal)
CPT/HCPCS: 71271

== ENCOUNTER → 2024-10-26 | Outpatient (CLI) | payer BC, SELFPAY ==
[2024-10-26 18:27] LABS: Barbiturate Urine NEGATIVE (< 200 ng/mL); Benzodiazepine Urine NEGATIVE (< 200 ng/mL); PCP Urine NEGATIVE (< 25 ng/mL); THC Urine NEGATIVE (< 50 ng/mL)
== END | disposition home or self-care (01) ==
LOC: LAB 15:50
PROVIDERS: PCP Internal Medicine; Referring Provider Anesthesiology Pain Medicine; Visit Provider Anesthesiology Pain Medicine
DX: F11.20 Opioid dependence, uncomplicated (principal)
CPT/HCPCS: 80307